=== PATIENT | female | born 1940 | race Caucasian/White ===

== ENCOUNTER 2018-03-20 10:04 | Inpatient (IN) | payer MEDICARE ==
[~2018-03-20] VITALS: Ht 160 cm; Wt 89.6 kg
[~2018-03-20 10:04] MED LIST: AMIT25TA PO; ASPI81TA50 PO; CALC-173 PO; CINN500C2 PO; FERR-46 PO; HYDR-3237 PO; INSU100I28 SQ; INSU100V SQ; LISI-170 PO; MAGN500T PO; METF500T4 PO; METO25TA35 PO; MULT-6 PO; NITR0.4T SL; OMEP-110 PO; PREG100C PO; ROPI2TAB6 PO; SIMV40TA3 PO; SITA100T PO; TICA90TA PO
[2018-03-20] MEDS ORDERED: MELOXICAM PO (10:42)
[2018-03-20] MEDS ORDERED: MAGNESIUM (10:42)
[2018-03-20] MEDS ORDERED: METOPROLOL PO (10:42)
[2018-03-20] MEDS ORDERED: METF500T4 PO ×2 (10:42→16:28)
[2018-03-20] MEDS ORDERED: LISINOPRIL PO (10:42)
[2018-03-20 11:01] LABS: BASOPHILS % (AUTO) 1 % (0-1); EOSINOPHILS # (AUTO) 0.34 x10^3/uL (0-0.4); EOSINOPHILS % (AUTO) 3 % (1-7); LYMPHOCYTES # (AUTO) 3.47 x10^3/uL (1-3.4); LYMPHOCYTES % (AUTO) 26 % (22-44); MD NO; MEAN CORPUSCULAR HEMOGLOBIN 29.3 pg (27.0-34.8); MEAN CORPUSCULAR HGB CONC 33.4 g/dL (32.4-35.8); MEAN CORPUSCULAR VOLUME 87.6 fL (80-100); MEAN PLATELET VOLUME 10.5 fL (7.4-10.4); MONOCYTES # (AUTO) 1.23 x10^3/uL (0.2-0.8); MONOCYTES % (AUTO) 9 % (2-9); NEUTROPHILS # (AUTO) 8.01 x10^3/uL (1.8-6.8); NEUTROPHILS % (AUTO) 61 % (42-75); PLATELET COUNT 288 x10^3/uL (130-400); RED CELL DISTRIBUTION WIDTH 13.6 % (9.6-15.2)
[2018-03-20 11:15] LABS: ALANINE AMINOTRANSFERASE 60 U/L (12-78); ANION GAP 11 mmol/L (5-15); CHLORIDE 107 mmol/L (98-107); CREATININE 1.05 mg/dL (0.55-1.02)
[2018-03-20 11:19] LABS: ALKALINE PHOSPHATASE 161 U/L (45-117); BILIRUBIN,TOTAL 0.6 mg/dL (0.2-1.0); TROPONIN I < 0.015 ng/mL (0.000-0.045)
[2018-03-20] MEDS ORDERED: METOPROLOL TARTRATE 50 MG TABLET PO ONE (12:00)
[2018-03-20] MEDS ORDERED: ENOXAPARIN 40 MG/0.4 ML SQ SCH (13:30)
[2018-03-20] MEDS ORDERED: ONDANSETRON ODT 4 MG PO PRN (13:30)
[2018-03-20] MEDS ORDERED: LABETALOL 5MG/ML, 20ML IVPush PRN (13:30)
[2018-03-20] MEDS ORDERED: POLYETHYLENE GLYCOL 17 GM PACKET PO PRN (13:30)
[2018-03-20] MEDS ORDERED: GUAIFENESIN/DM 200-20MG, 10ML UDC PO PRN (13:30)
[2018-03-20] MEDS ORDERED: ONDANSETRON 2MG/ML, 2ML IVPush PRN (13:30)
[2018-03-20] MEDS ORDERED: HYDROcodone/APAP 5/325 TABLET PO PRN (13:30)
[2018-03-20 14:29] LABS: FREE T4 (FREE THYROXINE) 1.04 ng/dL (0.76-1.46); TROPONIN I < 0.015 ng/mL (0.000-0.045)
[2018-03-20 15:05] VITALS: BP 155/71
[2018-03-20] MEDS ORDERED: METOPROLOL TARTRATE 50 MG TABLET ONE (16:05)
[2018-03-20 16:10] VITALS: BP 247/114
[2018-03-20 16:15] VITALS: BP 185/80
[2018-03-20] MEDS: NITROGLYCERIN 0.4 MG BOTTLE (25 TABS) SL PRN ×2 (16:18→16:28)
[2018-03-20] MEDS: PREGABALIN 100 MG CAPSULE PO SCH ×2 (16:19→20:50)
[2018-03-20 16:32] VITALS: BP 180/80
[2018-03-20] MEDS ORDERED: NITROGLYCERIN OINT 2%, 1GM TP ONE (17:00)
[2018-03-20] MEDS: NITROGLYCERIN OINT 2%, 1GM TP SCH (17:05)
[2018-03-20] MEDS: METOPROLOL TARTRATE 50 MG TABLET PO SCH (17:06)
[2018-03-20 17:12] VITALS: BP 148/70
[2018-03-20] MEDS ORDERED: HEPARIN 5,000 UNITS/ML, 1ML IV ONE (17:30)
[2018-03-20] MEDS ORDERED: morphine SULFATE 10 MG/ML, 1ML IVPush PRN (17:30)
[2018-03-20] MEDS ORDERED: HEPARIN 25,000 UNITS/500ML PMX 500 ML IV PRN (17:30)
[2018-03-20] MEDS ORDERED: HEPARIN 5,000 UNITS/ML, 1ML IV PRN (17:30)
[2018-03-20 18:46] VITALS: BP 147/53
[2018-03-20 19:43] LABS: TROPONIN I 0.016 ng/mL (0.000-0.045)
[2018-03-20 20:01] LABS: MICROSCOPIC INDICATED
[2018-03-20 20:05] LABS: CULTURE INDICATED? YES
[2018-03-20] MEDS: TICAGRELOR 90 MG TABLET PO SCH (20:47)
[2018-03-20] MEDS: SIMVASTATIN 40 MG TABLET PO SCH (20:48)
[2018-03-20] MEDS: ROPINIROLE 1MG TABLET PO SCH (20:48)
[2018-03-20] MEDS: AMITRIPTYLINE 25 MG TABLET PO SCH (20:49)
[2018-03-20] MEDS: INSULIN GLARGINE 100 UNITS/ML, PEN SQ-INSULIN SCH (21:05)
[2018-03-20] MEDS: INSULIN LISPRO 100 UNITS/ML, PEN SQ-INSULIN SCH (21:06)
[2018-03-21] MEDS: NITROGLYCERIN OINT 2%, 1GM TP SCH ×4 (01:00→17:53)
[2018-03-21 01:24] VITALS: BP 151/55
[2018-03-21] MEDS: METOPROLOL TARTRATE 50 MG TABLET PO SCH ×2 (06:01→17:53)
[2018-03-21 07:33] VITALS: BP 132/66
[2018-03-21 07:47] LABS: BASOPHILS # (AUTO) 0.17 x10^3/uL (0-0.1); BASOPHILS % (AUTO) 1 % (0-1); EOSINOPHILS # (AUTO) 0.45 x10^3/uL (0-0.4); EOSINOPHILS % (AUTO) 3 % (1-7); LYMPHOCYTES # (AUTO) 3.87 x10^3/uL (1-3.4); LYMPHOCYTES % (AUTO) 29 % (22-44); MD NO; MEAN CORPUSCULAR HEMOGLOBIN 28.9 pg (27.0-34.8); MEAN CORPUSCULAR HGB CONC 33.4 g/dL (32.4-35.8); MEAN CORPUSCULAR VOLUME 86.7 fL (80-100); MEAN PLATELET VOLUME 10.4 fL (7.4-10.4); MONOCYTES # (AUTO) 1.31 x10^3/uL (0.2-0.8); MONOCYTES % (AUTO) 10 % (2-9); NEUTROPHILS # (AUTO) 7.51 x10^3/uL (1.8-6.8); NEUTROPHILS % (AUTO) 57 % (42-75); PLATELET COUNT 273 x10^3/uL (130-400); RED BLOOD COUNT 4.35 x10^6/uL (3.82-5.3); RED CELL DISTRIBUTION WIDTH 13.4 % (9.6-15.2)
[2018-03-21 07:52] LABS: ALANINE AMINOTRANSFERASE 53 U/L (12-78); ALBUMIN 3.7 g/dL (3.4-5.0); ANION GAP 10 mmol/L (5-15); CALCIUM 8.9 mg/dL (8.5-10.1); CHLORIDE 107 mmol/L (98-107); CREATININE 1.27 mg/dL (0.55-1.02)
[2018-03-21 08:03] LABS: ALKALINE PHOSPHATASE 145 U/L (45-117); BILIRUBIN,TOTAL 0.6 mg/dL (0.2-1.0); TOTAL PROTEIN 7.6 g/dL (6.4-8.2)
[2018-03-21] MEDS: OMEPRAZOLE 20 MG CAPSULE.DR PO SCH (08:07)
[2018-03-21] MEDS: ASPIRIN 81 MG TABLET EC PO SCH (08:07)
[2018-03-21] MEDS: SITAGLIPTIN 50MG TABLET PO SCH (08:08)
[2018-03-21] MEDS: SENNA/DOCUSATE TABLET PO SCH (08:08)
[2018-03-21] MEDS: INSULIN LISPRO 100 UNITS/ML, PEN SQ-INSULIN SCH ×4 (08:08→19:56)
[2018-03-21] MEDS: LISINOPRIL 10 MG TABLET PO SCH (08:08)
[2018-03-21] MEDS: PREGABALIN 100 MG CAPSULE PO SCH ×3 (08:08→19:52)
[2018-03-21] MEDS: TICAGRELOR 90 MG TABLET PO SCH ×2 (08:09→19:52)
[2018-03-21] MEDS: MULTIVITAMIN 1 TABLET PO SCH (08:11)
[2018-03-21] MEDS: ENOXAPARIN 40 MG/0.4 ML SQ SCH (09:24)
[2018-03-21 10:21] LABS: HEMOGLOBIN A1C 8.8 % (4.2-6.3)
[2018-03-21 12:47] VITALS: BP 105/67
[2018-03-21 17:56] VITALS: BP 129/61
[2018-03-21] MEDS: AMITRIPTYLINE 25 MG TABLET PO SCH (19:51)
[2018-03-21] MEDS: SIMVASTATIN 40 MG TABLET PO SCH (19:52)
[2018-03-21] MEDS: ROPINIROLE 1MG TABLET PO SCH (19:52)
[2018-03-21 19:53] VITALS: BP 146/68
[2018-03-21] MEDS: INSULIN GLARGINE 100 UNITS/ML, PEN SQ-INSULIN SCH (19:56)
[2018-03-22] MEDS: NITROGLYCERIN OINT 2%, 1GM TP SCH ×2 (01:23→08:07)
[2018-03-22 01:24] VITALS: BP 116/95
[2018-03-22 05:17] LABS: BASOPHILS # (AUTO) 0.06 x10^3/uL (0-0.1); BASOPHILS % (AUTO) 1 % (0-1); EOSINOPHILS # (AUTO) 0.49 x10^3/uL (0-0.4); EOSINOPHILS % (AUTO) 5 % (1-7); LYMPHOCYTES # (AUTO) 3.15 x10^3/uL (1-3.4); LYMPHOCYTES % (AUTO) 33 % (22-44); MD NO; MEAN CORPUSCULAR HGB CONC 33.1 g/dL (32.4-35.8); MEAN CORPUSCULAR VOLUME 87.8 fL (80-100); MEAN PLATELET VOLUME 10.7 fL (7.4-10.4); MONOCYTES # (AUTO) 1.07 x10^3/uL (0.2-0.8); MONOCYTES % (AUTO) 11 % (2-9); NEUTROPHILS % (AUTO) 50 % (42-75); PLATELET COUNT 245 x10^3/uL (130-400); RED BLOOD COUNT 4.02 x10^6/uL (3.82-5.3); RED CELL DISTRIBUTION WIDTH 13.8 % (9.6-15.2)
[2018-03-22 05:19] LABS: CHLORIDE 107 mmol/L (98-107)
[2018-03-22 05:25] LABS: ALBUMIN 3.5 g/dL (3.4-5.0); ANION GAP 8 mmol/L (5-15); CALCIUM 8.9 mg/dL (8.5-10.1); CREATININE 1.29 mg/dL (0.55-1.02)
[2018-03-22] MEDS: METOPROLOL TARTRATE 50 MG TABLET PO SCH (05:35)
[2018-03-22 06:43] VITALS: BP 163/76
[2018-03-22] MEDS: ENOXAPARIN 40 MG/0.4 ML SQ SCH (08:06)
[2018-03-22] MEDS: TICAGRELOR 90 MG TABLET PO SCH (08:06)
[2018-03-22] MEDS: LISINOPRIL 10 MG TABLET PO SCH (08:06)
[2018-03-22] MEDS: SITAGLIPTIN 50MG TABLET PO SCH (08:06)
[2018-03-22] MEDS: INSULIN LISPRO 100 UNITS/ML, PEN SQ-INSULIN SCH ×3 (08:06→16:01)
[2018-03-22] MEDS: PREGABALIN 100 MG CAPSULE PO SCH ×2 (08:07→15:58)
[2018-03-22] MEDS: ASPIRIN 81 MG TABLET EC PO SCH (08:07)
[2018-03-22] MEDS: MULTIVITAMIN 1 TABLET PO SCH (08:07)
[2018-03-22] MEDS: OMEPRAZOLE 20 MG CAPSULE.DR PO SCH (08:07)
[2018-03-22] MEDS: SENNA/DOCUSATE TABLET PO SCH (08:08)
[2018-03-22] MEDS ORDERED: REGADENOSON 0.4 MG/5 ML SYRINGE ONE (09:39)
[2018-03-22] MEDS ORDERED: ISOSORBIDE MONONITRATE ER 60 MG TABLET PO SCH (10:00)
[2018-03-22 12:16] VITALS: BP 135/67
[2018-03-22] MEDS ORDERED: LISI-167 PO (15:49)
[2018-03-22] MEDS ORDERED: METO50TA82 PO (15:49)
[2018-03-22] MEDS ORDERED: ISOS60TA36 PO (15:49)
== END 2018-03-22 17:02 | disposition home or self-care (01) | DRG 303 ==
LOC: ED 11:16 → EDIP 11:48 → 5SO 13:35
PROVIDERS: ADMIT Hospitalist; ATTEND Hospitalist
DX: I25.110 Atherosclerotic heart disease of native coronary artery with unstable angina pectoris (principal); N17.9 Acute kidney failure, unspecified; E87.2 Acidosis; J96.11 Chronic respiratory failure with hypoxia; G62.9 Polyneuropathy, unspecified; E11.9 Type 2 diabetes mellitus without complications; E78.5 Hyperlipidemia, unspecified; I10 Essential (primary) hypertension; I25.2 Old myocardial infarction; I65.22 Occlusion and stenosis of left carotid artery; J44.9 Chronic obstructive pulmonary disease, unspecified; K21.9 Gastro-esophageal reflux disease without esophagitis; K22.70 Barrett's esophagus without dysplasia; Z95.5 Presence of coronary angioplasty implant and graft; Z79.4 Long term (current) use of insulin; Z79.82 Long term (current) use of aspirin; Z79.899 Other long term (current) drug therapy; Z80.0 Family history of malignant neoplasm of digestive organs; Z82.5 Family history of asthma and other chronic lower respiratory diseases; Z87.891 Personal history of nicotine dependence; Z90.710 Acquired absence of both cervix and uterus; Z99.81 Dependence on supplemental oxygen
CPT/HCPCS: 36415; 71045; 78452; 80048; 80053; 81001; 82040; 82962; 83036; 83605; 83735; 84100; 84439; 84443; 84484; 85025; 85520; 87086; 93005; 93017; 99285; J1644; J1650; J2785; A9502; C9898; J1815

== ENCOUNTER 2018-03-30 17:09 | Inpatient (IN) | payer MEDICARE ==
[~2018-03-30] VITALS: Ht 160 cm; Wt 89.7 kg
[~2018-03-30 17:09] MED LIST changes: +ISOS60TA36 PO; +LISI-167 PO; +LISINOPRIL PO; +MAGNESIUM; +MELOXICAM PO; -METF500T4 PO; +METF500T5 PO; +METO50TA82 PO; +METOPROLOL PO
[2018-03-30] MEDS ORDERED: NITROGLYCERIN OINT 2%, 1GM TP ONE (17:30)
[2018-03-30] MEDS ORDERED: NITROGLYCERIN SINGLE TAB 0.4 MG SL PRN (17:30)
[2018-03-30 17:50] LABS: TROPONIN I < 0.015 ng/mL (0.000-0.045)
[2018-03-30] MEDS ORDERED: METO25TA35 PO (17:56)
[2018-03-30] MEDS ORDERED: LISI-170 PO (17:56)
[2018-03-30] MEDS ORDERED: MELO15TA24 PO (17:56)
[2018-03-30] MEDS ORDERED: ONDANSETRON ODT 4 MG PO PRN (20:00)
[2018-03-30] MEDS ORDERED: LABETALOL 5MG/ML, 20ML IVPush PRN (20:00)
[2018-03-30] MEDS ORDERED: DOCUSATE 100 MG CAPSULE PO PRN (20:00)
[2018-03-30] MEDS ORDERED: BISACODYL 10 MG SUPP PR PRN (20:00)
[2018-03-30] MEDS ORDERED: morphine SULFATE 10 MG/ML, 1ML IVPush PRN (20:00)
[2018-03-30] MEDS ORDERED: hydrALAzine 20 MG/ML, 1ML IVPush PRN (20:00)
[2018-03-30] MEDS ORDERED: POLYETHYLENE GLYCOL 17 GM PACKET PO PRN (20:00)
[2018-03-30 20:11] VITALS: BP 135/72
[2018-03-30] MEDS ORDERED: DEXTROSE 4 GM TAB.CHEW PO PRN (20:30)
[2018-03-30] MEDS ORDERED: GLUCAGON 1 MG IM PRN (20:30)
[2018-03-30] MEDS ORDERED: DEXTROSE 50%, 50ML SYRINGE IVPush PRN (20:30)
[2018-03-30 20:35] LABS: TROPONIN I 0.018 ng/mL (0.000-0.045)
[2018-03-30] MEDS: NITROGLYCERIN 0.4 MG BOTTLE (25 TABS) SL PRN ×2 (20:52→22:21)
[2018-03-30 20:57] VITALS: BP 130/69
[2018-03-30] MEDS: SODIUM CHLORIDE 0.9% 1,000 ML IV SCH (21:49)
[2018-03-30] MEDS: PREGABALIN 100 MG CAPSULE PO SCH (21:50)
[2018-03-30] MEDS: HEPARIN 5,000 UNITS/ML, 1ML SQ SCH (21:50)
[2018-03-30] MEDS: TICAGRELOR 90 MG TABLET PO SCH (21:50)
[2018-03-30] MEDS: SODIUM CHLORIDE FLUSH 10ML SYR IVF SCH (21:50)
[2018-03-30] MEDS: AMITRIPTYLINE 25 MG TABLET PO SCH (21:50)
[2018-03-30] MEDS: SIMVASTATIN 40 MG TABLET PO SCH (21:50)
[2018-03-30] MEDS: INSULIN LISPRO 100 UNITS/ML, PEN SQ-INSULIN SCH (22:02)
[2018-03-30] MEDS: INSULIN GLARGINE 100 UNITS/ML, PEN SQ-INSULIN SCH (22:03)
[2018-03-30 22:19] VITALS: BP 159/98
[2018-03-30 22:33] VITALS: BP 134/74
[2018-03-31] VITALS (13 sets, daily range): BP systolic 125–221; BP diastolic 53–90
[2018-03-31] MEDS: NITROGLYCERIN 0.4 MG BOTTLE (25 TABS) SL PRN ×5 (00:05→22:27)
[2018-03-31] MEDS: ACETAMINOPHEN 325 MG TABLET PO PRN ×2 (00:09→22:21)
[2018-03-31 02:17] LABS: BASOPHILS % (AUTO) 1 % (0-1); EOSINOPHILS # (AUTO) 0.29 x10^3/uL (0-0.4); EOSINOPHILS % (AUTO) 3 % (1-7); LYMPHOCYTES # (AUTO) 3.06 x10^3/uL (1-3.4); LYMPHOCYTES % (AUTO) 28 % (22-44); MD NO; MEAN CORPUSCULAR HEMOGLOBIN 28.9 pg (27.0-34.8); MEAN CORPUSCULAR HGB CONC 33.1 g/dL (32.4-35.8); MEAN CORPUSCULAR VOLUME 87.5 fL (80-100); MEAN PLATELET VOLUME 10.8 fL (7.4-10.4); MONOCYTES # (AUTO) 1.14 x10^3/uL (0.2-0.8); MONOCYTES % (AUTO) 10 % (2-9); NEUTROPHILS # (AUTO) 6.43 x10^3/uL (1.8-6.8); NEUTROPHILS % (AUTO) 58 % (42-75); PLATELET COUNT 243 x10^3/uL (130-400); RED CELL DISTRIBUTION WIDTH 13.9 % (9.6-15.2)
[2018-03-31 02:26] LABS: ANION GAP 9 mmol/L (5-15); CALCIUM 9.2 mg/dL (8.5-10.1); CHLORIDE 107 mmol/L (98-107); CREATININE 1.17 mg/dL (0.55-1.02)
[2018-03-31 02:30] LABS: TROPONIN I 0.048 ng/mL (0.000-0.045)
[2018-03-31] MEDS: SODIUM CHLORIDE 0.9% 1,000 ML IV SCH ×4 (05:59→23:51)
[2018-03-31] MEDS: ASPIRIN 325 MG TABLET PO SCH (06:00)
[2018-03-31] MEDS: HEPARIN 5,000 UNITS/ML, 1ML SQ SCH ×3 (06:00→20:00)
[2018-03-31] MEDS: METOPROLOL TARTRATE 25 MG TABLET PO SCH (08:04)
[2018-03-31] MEDS: INSULIN LISPRO 100 UNITS/ML, PEN SQ-INSULIN SCH ×4 (08:04→21:26)
[2018-03-31] MEDS: TICAGRELOR 90 MG TABLET PO SCH ×2 (08:04→21:24)
[2018-03-31] MEDS: SODIUM CHLORIDE FLUSH 10ML SYR IVF SCH ×2 (08:06→21:24)
[2018-03-31] MEDS: OMEPRAZOLE 20 MG CAPSULE.DR PO SCH (08:18)
[2018-03-31] MEDS: LISINOPRIL 20 MG TABLET PO SCH (08:19)
[2018-03-31] MEDS: PREGABALIN 100 MG CAPSULE PO SCH ×3 (08:19→21:24)
[2018-03-31] MEDS: ISOSORBIDE MONONITRATE ER 60 MG TABLET PO SCH (08:22)
[2018-03-31] MEDS ORDERED: SODIUM CHLORIDE 0.9% 1,000 ML IV ONE (11:13)
[2018-03-31] MEDS ORDERED: MIDAZOLAM 1 MG/ML, 5ML ONE (14:18)
[2018-03-31] MEDS ORDERED: FENTANYL PF 100 MCG/2ML ONE (14:19)
[2018-03-31] MEDS ORDERED: VERAPAMIL 2.5 MG/ML, 2ML ONE (14:19)
[2018-03-31] MEDS ORDERED: HEPARIN 1,000 UNITS/ML, 10ML ONE (14:19)
[2018-03-31] MEDS ORDERED: BIVALIRUDIN 250 MG ONE (14:19)
[2018-03-31] MEDS ORDERED: TICAGRELOR 90 MG TABLET ONE (14:20)
[2018-03-31] MEDS ORDERED: LIDOCAINE 2%, 2ML ONE (14:20)
[2018-03-31] MEDS ORDERED: LABETALOL 5MG/ML, 20ML ONE (15:02)
[2018-03-31] MEDS: MAGNESIUM OXIDE 400 MG TABLET PO SCH (16:21)
[2018-03-31] MEDS: MULTIVITAMIN 1 TABLET PO SCH (16:21)
[2018-03-31] MEDS: FERROUS SULFATE 325 MG TABLET PO SCH (16:21)
[2018-03-31] MEDS: CALCIUM/VITAMIN D3 250-125 TABLET PO SCH (16:24)
[2018-03-31] MEDS: SIMVASTATIN 40 MG TABLET PO SCH (21:24)
[2018-03-31] MEDS: AMITRIPTYLINE 25 MG TABLET PO SCH (21:24)
[2018-03-31] MEDS: INSULIN GLARGINE 100 UNITS/ML, PEN SQ-INSULIN SCH (21:25)
[2018-04-01] VITALS (7 sets, daily range): BP systolic 104–203; BP diastolic 60–100
[2018-04-01] MEDS: HEPARIN 5,000 UNITS/ML, 1ML SQ SCH ×2 (05:23→13:18)
[2018-04-01] MEDS: ASPIRIN 325 MG TABLET PO SCH (05:23)
[2018-04-01 05:39] LABS: ALBUMIN 3.6 g/dL (3.4-5.0); ANION GAP 8 mmol/L (5-15); CALCIUM 9.4 mg/dL (8.5-10.1); CHLORIDE 108 mmol/L (98-107); CREATININE 1.14 mg/dL (0.55-1.02)
[2018-04-01 05:40] LABS: BASOPHILS # (AUTO) 0.07 x10^3/uL (0-0.1); BASOPHILS % (AUTO) 1 % (0-1); EOSINOPHILS # (AUTO) 0.39 x10^3/uL (0-0.4); EOSINOPHILS % (AUTO) 3 % (1-7); LYMPHOCYTES # (AUTO) 2.95 x10^3/uL (1-3.4); LYMPHOCYTES % (AUTO) 22 % (22-44); MD NO; MEAN CORPUSCULAR HGB CONC 33.1 g/dL (32.4-35.8); MEAN CORPUSCULAR VOLUME 87.6 fL (80-100); MEAN PLATELET VOLUME 11.3 fL (7.4-10.4); MONOCYTES # (AUTO) 1.22 x10^3/uL (0.2-0.8); MONOCYTES % (AUTO) 9 % (2-9); NEUTROPHILS # (AUTO) 8.64 x10^3/uL (1.8-6.8); NEUTROPHILS % (AUTO) 65 % (42-75); PLATELET COUNT 251 x10^3/uL (130-400); RED BLOOD COUNT 4.05 x10^6/uL (3.82-5.3); RED CELL DISTRIBUTION WIDTH 13.8 % (9.6-15.2)
[2018-04-01] MEDS: SODIUM CHLORIDE 0.9% 1,000 ML IV SCH ×3 (07:51→23:51)
[2018-04-01] MEDS: INSULIN LISPRO 100 UNITS/ML, PEN SQ-INSULIN SCH ×4 (08:56→21:47)
[2018-04-01] MEDS: MULTIVITAMIN 1 TABLET PO SCH (08:57)
[2018-04-01] MEDS: OMEPRAZOLE 20 MG CAPSULE.DR PO SCH (08:57)
[2018-04-01] MEDS: FERROUS SULFATE 325 MG TABLET PO SCH (08:58)
[2018-04-01] MEDS: LISINOPRIL 20 MG TABLET PO SCH (08:58)
[2018-04-01] MEDS: PREGABALIN 100 MG CAPSULE PO SCH ×3 (08:58→21:40)
[2018-04-01] MEDS: CALCIUM/VITAMIN D3 250-125 TABLET PO SCH (08:58)
[2018-04-01] MEDS: TICAGRELOR 90 MG TABLET PO SCH ×2 (08:58→21:40)
[2018-04-01] MEDS: ISOSORBIDE MONONITRATE ER 60 MG TABLET PO SCH (08:58)
[2018-04-01] MEDS: METOPROLOL TARTRATE 25 MG TABLET PO SCH (08:58)
[2018-04-01] MEDS: MAGNESIUM OXIDE 400 MG TABLET PO SCH (09:02)
[2018-04-01] MEDS: SODIUM CHLORIDE FLUSH 10ML SYR IVF SCH ×2 (09:05→21:41)
[2018-04-01] MEDS: NITROGLYCERIN 0.4 MG BOTTLE (25 TABS) SL PRN ×2 (09:15→09:22)
[2018-04-01] MEDS: ACETAMINOPHEN 325 MG TABLET PO PRN (09:20)
[2018-04-01] MEDS: AMITRIPTYLINE 25 MG TABLET PO SCH (21:40)
[2018-04-01] MEDS: SIMVASTATIN 40 MG TABLET PO SCH (21:40)
[2018-04-01] MEDS: INSULIN GLARGINE 100 UNITS/ML, PEN SQ-INSULIN SCH (21:55)
[2018-04-02] VITALS (8 sets, daily range): BP systolic 118–214; BP diastolic 54–99
[2018-04-02 05:46] LABS: CHLORIDE 108 mmol/L (98-107)
[2018-04-02 05:50] LABS: ANION GAP 9 mmol/L (5-15); CALCIUM 9.6 mg/dL (8.5-10.1); CREATININE 1.36 mg/dL (0.55-1.02)
[2018-04-02] MEDS ORDERED: ASPIRIN 81 MG TABLET EC PO SCH (06:00)
[2018-04-02] MEDS ORDERED: SODIUM CHLORIDE 0.9% 1,000 ML IV SCH (08:00)
[2018-04-02] MEDS: INSULIN LISPRO 100 UNITS/ML, PEN SQ-INSULIN SCH ×2 (08:16→12:02)
[2018-04-02] MEDS: MAGNESIUM OXIDE 400 MG TABLET PO SCH ×2 (09:00→09:49)
[2018-04-02] MEDS: SODIUM CHLORIDE FLUSH 10ML SYR IVF SCH (09:00)
[2018-04-02] MEDS: METOPROLOL TARTRATE 25 MG TABLET PO SCH (09:54)
[2018-04-02] MEDS: OMEPRAZOLE 20 MG CAPSULE.DR PO SCH (09:54)
[2018-04-02] MEDS: PREGABALIN 100 MG CAPSULE PO SCH ×2 (09:54→15:11)
[2018-04-02] MEDS: CALCIUM/VITAMIN D3 250-125 TABLET PO SCH (09:55)
[2018-04-02] MEDS: LISINOPRIL 20 MG TABLET PO SCH (09:55)
[2018-04-02] MEDS: FERROUS SULFATE 325 MG TABLET PO SCH (09:55)
[2018-04-02] MEDS: MULTIVITAMIN 1 TABLET PO SCH (09:55)
[2018-04-02] MEDS: TICAGRELOR 90 MG TABLET PO SCH (09:55)
[2018-04-02] MEDS ORDERED: ISOSORBIDE MONONITRATE ER 30 MG TABLET ONE (09:56)
[2018-04-02] MEDS: ISOSORBIDE MONONITRATE ER 60 MG TABLET PO SCH (09:57)
[2018-04-02] MEDS: MAALOX/HYOSCYAMINE/LIDOCAINE 45 ML BTL PO PRN ×2 (09:58→10:42)
[2018-04-02] MEDS ORDERED: SODIUM CHLORIDE 0.9%, 500ML IVBOLUS ONE (10:00)
[2018-04-02] MEDS: NITROGLYCERIN 0.4 MG BOTTLE (25 TABS) SL PRN ×2 (10:14→10:22)
[2018-04-02 12:42] LABS: ANION GAP 8 mmol/L (5-15); CALCIUM 8.8 mg/dL (8.5-10.1); CHLORIDE 106 mmol/L (98-107)
[2018-04-02 12:44] LABS: CREATININE 1.28 mg/dL (0.55-1.02)
== END 2018-04-02 16:15 | disposition home or self-care (01) | DRG 250 ==
LOC: ED 17:54 → EDIP 18:52 → 5SO 20:28 → DCLOUNGE 04-02 15:40
PROVIDERS: ADMIT Hospitalist; ATTEND Hospitalist
PROC: 02703ZZ Dilation of Coronary Artery, One Artery, Percutaneous Approach (ICD-10-PCS; principal; 2018-03-31)
PROC: B2111ZZ Fluoroscopy of Multiple Coronary Arteries using Low Osmolar Contrast (ICD-10-PCS; 2018-03-31)
PROC: 4A023N7 Measurement of Cardiac Sampling and Pressure, Left Heart, Percutaneous Approach (ICD-10-PCS; 2018-03-31)
DX: T82.855A Stenosis of coronary artery stent, initial encounter (principal); N17.0 Acute kidney failure with tubular necrosis; J96.11 Chronic respiratory failure with hypoxia; I10 Essential (primary) hypertension; E78.5 Hyperlipidemia, unspecified; J44.9 Chronic obstructive pulmonary disease, unspecified; K22.70 Barrett's esophagus without dysplasia; I25.10 Atherosclerotic heart disease of native coronary artery without angina pectoris; I65.29 Occlusion and stenosis of unspecified carotid artery; N14.1 Nephropathy induced by other drugs, medicaments and biological substances; E11.65 Type 2 diabetes mellitus with hyperglycemia; Y83.8 Other surgical procedures as the cause of abnormal reaction of the patient, or of later complication, without mention of misadventure at the time of the procedure; T50.8X5A Adverse effect of diagnostic agents, initial encounter; K21.9 Gastro-esophageal reflux disease without esophagitis; Z87.891 Personal history of nicotine dependence; Y92.89 Other specified places as the place of occurrence of the external cause; I25.2 Old myocardial infarction; Z80.0 Family history of malignant neoplasm of digestive organs; Z82.5 Family history of asthma and other chronic lower respiratory diseases; Z90.710 Acquired absence of both cervix and uterus; Z95.5 Presence of coronary angioplasty implant and graft; Z99.81 Dependence on supplemental oxygen
CPT/HCPCS: 36415; 80048; 82040; 82962; 83735; 84484; 85025; 92920; 93005; 93458; 99156; 99157; 99285; C1769; C1894; J0583; J1644; J2250; J3010; J3490; 92928; C1725; C1887; J7030; J7040; Q9967

== ENCOUNTER 2018-04-05 10:54 | Inpatient (IN) | payer MEDICARE ==
[~2018-04-05] VITALS: Ht 160 cm; Wt 88.3 kg
[~2018-04-05 10:54] MED LIST changes: +MELO15TA24 PO
[2018-04-05] MEDS ORDERED: SODIUM CHLORIDE FLUSH 10ML SYR IVF ONE (11:30)
[2018-04-05 14:00] LABS: BASOPHILS % (AUTO) 1 % (0-1); EOSINOPHILS # (AUTO) 0.74 x10^3/uL (0-0.4); EOSINOPHILS % (AUTO) 6 % (1-7); LYMPHOCYTES # (AUTO) 3.79 x10^3/uL (1-3.4); LYMPHOCYTES % (AUTO) 29 % (22-44); MD NO; MEAN CORPUSCULAR HEMOGLOBIN 28.8 pg (27.0-34.8); MEAN CORPUSCULAR VOLUME 87.2 fL (80-100); MEAN PLATELET VOLUME 10.8 fL (7.4-10.4); MONOCYTES # (AUTO) 1.23 x10^3/uL (0.2-0.8); MONOCYTES % (AUTO) 9 % (2-9); NEUTROPHILS # (AUTO) 7.37 x10^3/uL (1.8-6.8); NEUTROPHILS % (AUTO) 56 % (42-75); PLATELET COUNT 282 x10^3/uL (130-400); RED CELL DISTRIBUTION WIDTH 14.2 % (9.6-15.2)
[2018-04-05] MEDS ORDERED: NITROGLYCERIN 0.4 MG BOTTLE (25 TABS) SL PRN (14:00)
[2018-04-05] MEDS ORDERED: ONDANSETRON ODT 4 MG PO PRN (14:00)
[2018-04-05] MEDS: INSULIN LISPRO 100 UNITS/ML, PEN SQ-INSULIN SCH ×2 (14:00→16:18)
[2018-04-05] MEDS ORDERED: hydrALAzine 20 MG/ML, 1ML IVPush PRN (14:00)
[2018-04-05] MEDS ORDERED: PROMETHAZINE 25 MG/ML, 1ML IM PRN (14:00)
[2018-04-05] MEDS ORDERED: morphine SULFATE 10 MG/ML, 1ML IVPush PRN (14:00)
[2018-04-05] MEDS ORDERED: ENOXAPARIN 40 MG/0.4 ML SQ SCH (14:00)
[2018-04-05] MEDS ORDERED: ACETAMINOPHEN 325 MG TABLET PO PRN (14:00)
[2018-04-05 14:08] LABS: INTERNATIONAL NORMALIZED RATIO 1.04 (0.93-1.1); PROTHROMBIN TIME 10.7 Seconds (9.6-11.5)
[2018-04-05 14:13] LABS: ANION GAP 8 mmol/L (5-15); CALCIUM 9.3 mg/dL (8.5-10.1); CHLORIDE 105 mmol/L (98-107); CREATININE 1.46 mg/dL (0.55-1.02)
[2018-04-05] MEDS ORDERED: ENOXAPARIN 30 MG/0.3 ML SQ SCH (15:30)
[2018-04-05 15:36] VITALS: BP 117/67
[2018-04-05] MEDS: PREGABALIN 100 MG CAPSULE PO SCH ×2 (16:18→20:40)
[2018-04-05 19:51] LABS: TROPONIN I 0.979 ng/mL (0.000-0.045)
[2018-04-05 19:54] VITALS: BP 100/59
[2018-04-05] MEDS: TICAGRELOR 90 MG TABLET PO SCH (20:40)
[2018-04-05] MEDS: AMITRIPTYLINE 25 MG TABLET PO SCH (20:40)
[2018-04-05] MEDS: ROPINIROLE 1MG TABLET PO SCH (20:40)
[2018-04-05] MEDS: INSULIN GLARGINE 100 UNITS/ML, PEN SQ-INSULIN SCH (20:46)
[2018-04-05] MEDS ORDERED: SIMVASTATIN 40 MG TABLET PO SCH (21:00)
[2018-04-06] VITALS (7 sets, daily range): BP systolic 108–168; BP diastolic 63–86
[2018-04-06 02:00] LABS: ANION GAP 8 mmol/L (5-15); CALCIUM 9.1 mg/dL (8.5-10.1); CHLORIDE 108 mmol/L (98-107); CREATININE 1.26 mg/dL (0.55-1.02)
[2018-04-06 02:05] LABS: TROPONIN I 0.679 ng/mL (0.000-0.045)
[2018-04-06] MEDS: INSULIN LISPRO 100 UNITS/ML, PEN SQ-INSULIN SCH ×3 (07:30→16:34)
[2018-04-06] MEDS ORDERED: SODIUM CHLORIDE 0.9% 1,000 ML IV ONE (08:34)
[2018-04-06] MEDS: MELOXICAM 15 MG TABLET PO SCH (08:38)
[2018-04-06] MEDS: LISINOPRIL 20 MG TABLET PO SCH (08:38)
[2018-04-06] MEDS: OMEPRAZOLE 20 MG CAPSULE.DR PO SCH (08:38)
[2018-04-06] MEDS: ASPIRIN 81 MG TABLET EC PO SCH (08:38)
[2018-04-06] MEDS: FERROUS SULFATE 325 MG TABLET PO SCH (08:38)
[2018-04-06] MEDS: SITAGLIPTIN 50MG TABLET PO SCH (08:38)
[2018-04-06] MEDS: TICAGRELOR 90 MG TABLET PO SCH ×2 (08:39→20:39)
[2018-04-06] MEDS: CALCIUM/VITAMIN D3 250-125 TABLET PO SCH (08:39)
[2018-04-06] MEDS: ISOSORBIDE MONONITRATE ER 60 MG TABLET PO SCH (08:39)
[2018-04-06] MEDS: MULTIVITAMIN 1 TABLET PO SCH (08:39)
[2018-04-06] MEDS: PREGABALIN 100 MG CAPSULE PO SCH ×3 (08:39→20:39)
[2018-04-06] MEDS: MAGNESIUM OXIDE 400 MG TABLET PO SCH (08:39)
[2018-04-06] MEDS: METOPROLOL SUCCINATE 25 MG TAB.ER.24H PO SCH (08:42)
[2018-04-06] MEDS ORDERED: METOPROLOL TARTRATE 25 MG TABLET PO SCH (09:00)
[2018-04-06] MEDS ORDERED: FENTANYL PF 100 MCG/2ML ONE (11:56)
[2018-04-06] MEDS ORDERED: VERAPAMIL 2.5 MG/ML, 2ML ONE (11:56)
[2018-04-06] MEDS ORDERED: MIDAZOLAM 1 MG/ML, 5ML ONE (11:56)
[2018-04-06] MEDS ORDERED: BIVALIRUDIN 250 MG ONE (11:57)
[2018-04-06] MEDS ORDERED: NITROGLYCERIN 5 MG/ML, 10ML ONE (11:57)
[2018-04-06] MEDS ORDERED: LIDOCAINE/PF 1%, 30ML ONE (11:57)
[2018-04-06] MEDS ORDERED: HEPARIN 1,000 UNITS/ML, 10ML ONE (11:57)
[2018-04-06] MEDS ORDERED: LIDOCAINE 2%, 2ML ONE (12:23)
[2018-04-06] MEDS ORDERED: ENOXAPARIN 40 MG/0.4 ML SQ SCH (15:00)
[2018-04-06] MEDS: AMITRIPTYLINE 25 MG TABLET PO SCH (20:38)
[2018-04-06] MEDS: ROPINIROLE 1MG TABLET PO SCH (20:39)
[2018-04-06] MEDS ORDERED: ATORVASTATIN 80 MG TABLET PO SCH (21:00)
[2018-04-06] MEDS: INSULIN GLARGINE 100 UNITS/ML, PEN SQ-INSULIN SCH (22:27)
[2018-04-07 01:33] VITALS: BP 96/55
[2018-04-07 05:35] LABS: BASOPHILS # (AUTO) 0.04 x10^3/uL (0-0.1); BASOPHILS % (AUTO) 0 % (0-1); EOSINOPHILS # (AUTO) 0.47 x10^3/uL (0-0.4); EOSINOPHILS % (AUTO) 4 % (1-7); LYMPHOCYTES # (AUTO) 3.48 x10^3/uL (1-3.4); LYMPHOCYTES % (AUTO) 32 % (22-44); MD NO; MEAN CORPUSCULAR HEMOGLOBIN 29.1 pg (27.0-34.8); MEAN CORPUSCULAR HGB CONC 32.8 g/dL (32.4-35.8); MEAN CORPUSCULAR VOLUME 88.8 fL (80-100); MEAN PLATELET VOLUME 11.4 fL (7.4-10.4); MONOCYTES # (AUTO) 1.26 x10^3/uL (0.2-0.8); MONOCYTES % (AUTO) 11 % (2-9); NEUTROPHILS # (AUTO) 5.81 x10^3/uL (1.8-6.8); NEUTROPHILS % (AUTO) 53 % (42-75); PLATELET COUNT 248 x10^3/uL (130-400); RED BLOOD COUNT 3.82 x10^6/uL (3.82-5.3); RED CELL DISTRIBUTION WIDTH 14.4 % (9.6-15.2)
[2018-04-07 05:42] LABS: ALBUMIN 3.2 g/dL (3.4-5.0); ANION GAP 7 mmol/L (5-15); CALCIUM 9.2 mg/dL (8.5-10.1); CHLORIDE 107 mmol/L (98-107)
[2018-04-07 05:43] LABS: CREATININE 1.64 mg/dL (0.55-1.02)
[2018-04-07 05:45] VITALS: BP 118/60
[2018-04-07] MEDS: METOPROLOL SUCCINATE 25 MG TAB.ER.24H PO SCH (05:46)
[2018-04-07 08:00] VITALS: BP 126/78
[2018-04-07] MEDS: INSULIN LISPRO 100 UNITS/ML, PEN SQ-INSULIN SCH (09:20)
[2018-04-07] MEDS: PREGABALIN 100 MG CAPSULE PO SCH (09:22)
[2018-04-07] MEDS: ISOSORBIDE MONONITRATE ER 60 MG TABLET PO SCH (09:24)
[2018-04-07] MEDS: MAGNESIUM OXIDE 400 MG TABLET PO SCH (09:26)
[2018-04-07] MEDS: SITAGLIPTIN 50MG TABLET PO SCH (09:26)
[2018-04-07] MEDS: FERROUS SULFATE 325 MG TABLET PO SCH (09:27)
[2018-04-07] MEDS: MELOXICAM 15 MG TABLET PO SCH (09:29)
[2018-04-07] MEDS: OMEPRAZOLE 20 MG CAPSULE.DR PO SCH (09:29)
[2018-04-07] MEDS: ASPIRIN 81 MG TABLET EC PO SCH (09:30)
[2018-04-07] MEDS: LISINOPRIL 20 MG TABLET PO SCH (09:31)
[2018-04-07] MEDS: CALCIUM/VITAMIN D3 250-125 TABLET PO SCH (09:32)
[2018-04-07] MEDS: MULTIVITAMIN 1 TABLET PO SCH (09:33)
[2018-04-07] MEDS: TICAGRELOR 90 MG TABLET PO SCH (09:34)
[2018-04-07] MEDS ORDERED: ENOXAPARIN 30 MG/0.3 ML SQ SCH (15:00)
== END 2018-04-07 11:43 | disposition home or self-care (01) | DRG 246 ==
LOC: ED 11:37 → EDIP 12:02 → 5SO 14:46 → DCLOUNGE 04-07 11:30
PROVIDERS: ADMIT Internal Medicine; ATTEND Hospitalist
PROC: 027034Z Dilation of Coronary Artery, One Artery with Drug-eluting Intraluminal Device, Percutaneous Approach (ICD-10-PCS; principal; 2018-04-06)
PROC: 4A023N7 Measurement of Cardiac Sampling and Pressure, Left Heart, Percutaneous Approach (ICD-10-PCS; 2018-04-06)
PROC: B2111ZZ Fluoroscopy of Multiple Coronary Arteries using Low Osmolar Contrast (ICD-10-PCS; 2018-04-06)
PROC: B2151ZZ Fluoroscopy of Left Heart using Low Osmolar Contrast (ICD-10-PCS; 2018-04-06)
DX: I21.4 Non-ST elevation (NSTEMI) myocardial infarction (principal); N17.0 Acute kidney failure with tubular necrosis; J96.11 Chronic respiratory failure with hypoxia; I25.110 Atherosclerotic heart disease of native coronary artery with unstable angina pectoris; E11.51 Type 2 diabetes mellitus with diabetic peripheral angiopathy without gangrene; I65.22 Occlusion and stenosis of left carotid artery; J44.9 Chronic obstructive pulmonary disease, unspecified; N28.9 Disorder of kidney and ureter, unspecified; E11.22 Type 2 diabetes mellitus with diabetic chronic kidney disease; E78.5 Hyperlipidemia, unspecified; E66.9 Obesity, unspecified; I12.9 Hypertensive chronic kidney disease with stage 1 through stage 4 chronic kidney disease, or unspecified chronic kidney disease; K21.9 Gastro-esophageal reflux disease without esophagitis; K22.70 Barrett's esophagus without dysplasia; N18.2 Chronic kidney disease, stage 2 (mild); Z79.4 Long term (current) use of insulin; Z80.0 Family history of malignant neoplasm of digestive organs; I25.2 Old myocardial infarction; Z87.891 Personal history of nicotine dependence; Z82.5 Family history of asthma and other chronic lower respiratory diseases; Z90.49 Acquired absence of other specified parts of digestive tract; Z90.710 Acquired absence of both cervix and uterus; Z99.81 Dependence on supplemental oxygen; Z79.82 Long term (current) use of aspirin; Z79.899 Other long term (current) drug therapy; Z88.8 Allergy status to other drugs, medicaments and biological substances
CPT/HCPCS: 36415; 80048; 82040; 82962; 83690; 83735; 84100; 84443; 84484; 85025; 85610; 93005; 93458; 99156; 99157; 99285; C1769; C1894; C9600; J0583; J1644; J1650; J2250; J3010; J3490; C1725; C1874; C1887; J1815; J2270; Q9967

== ENCOUNTER 2018-05-22 14:01 | Inpatient (IN) | payer MEDICARE ==
[2018-05-22] VITALS (11 sets, daily range): BP systolic 144–253; BP diastolic 65–113
[~2018-05-22] VITALS: Ht 152.4 cm; Wt 90.5 kg
[2018-05-22] MEDS ORDERED: SODIUM CHLORIDE FLUSH 10ML SYR IVF ONE (14:30)
[2018-05-22 14:43] LABS: BASOPHILS % (AUTO) 1 % (0-1); EOSINOPHILS # (AUTO) 0.35 x10^3/uL (0-0.4); EOSINOPHILS % (AUTO) 3 % (1-7); LYMPHOCYTES # (AUTO) 2.55 x10^3/uL (1-3.4); LYMPHOCYTES % (AUTO) 19 % (22-44); MD NO; MEAN CORPUSCULAR HEMOGLOBIN 29.7 pg (27.0-34.8); MEAN CORPUSCULAR HGB CONC 33.5 g/dL (32.4-35.8); MEAN CORPUSCULAR VOLUME 88.5 fL (80-100); MEAN PLATELET VOLUME 10.4 fL (7.4-10.4); MONOCYTES # (AUTO) 1.08 x10^3/uL (0.2-0.8); MONOCYTES % (AUTO) 8 % (2-9); NEUTROPHILS % (AUTO) 69 % (42-75); PLATELET COUNT 268 x10^3/uL (130-400); RED BLOOD COUNT 4.22 x10^6/uL (3.82-5.3); RED CELL DISTRIBUTION WIDTH 13.3 % (9.6-15.2)
[2018-05-22 14:47] LABS: ALANINE AMINOTRANSFERASE 35 U/L (12-78); ALBUMIN 3.7 g/dL (3.4-5.0); ANION GAP 9 mmol/L (5-15); CHLORIDE 110 mmol/L (98-107); CREATININE 1.43 mg/dL (0.55-1.02)
[2018-05-22 14:51] LABS: ALKALINE PHOSPHATASE 132 U/L (45-117); BILIRUBIN,TOTAL 0.5 mg/dL (0.2-1.0); TOTAL PROTEIN 7.6 g/dL (6.4-8.2); TROPONIN I < 0.015 ng/mL (0.000-0.045)
[2018-05-22] MEDS: INSULIN LISPRO 100 UNITS/ML, PEN SQ-INSULIN SCH ×2 (17:00→22:14)
[2018-05-22] MEDS ORDERED: MORPHINE SULFATE 4 MG/ML, 1ML IVPush PRN (17:00)
[2018-05-22] MEDS ORDERED: HYDROcodone/APAP 5/325 TABLET PO PRN (17:00)
[2018-05-22] MEDS ORDERED: ONDANSETRON 2MG/ML, 2ML IVPush PRN (17:00)
[2018-05-22] MEDS: NITROGLYCERIN 0.4 MG BOTTLE (25 TABS) SL PRN ×5 (18:00→21:16)
[2018-05-22] MEDS ORDERED: ENOXAPARIN 40 MG/0.4 ML SQ SCH (18:00)
[2018-05-22 20:41] LABS: TROPONIN I 0.018 ng/mL (0.000-0.045)
[2018-05-22] MEDS ORDERED: LABETALOL 5MG/ML, 20ML IVPush PRN (22:00)
[2018-05-22] MEDS ORDERED: ISOSORBIDE MONONITRATE ER 60 MG TABLET PO ONE (22:00)
[2018-05-22] MEDS: ROPINIROLE 1MG TABLET PO SCH (22:04)
[2018-05-22] MEDS: SIMVASTATIN 40 MG TABLET PO SCH (22:05)
[2018-05-22] MEDS: PREGABALIN 100 MG CAPSULE PO SCH (22:09)
[2018-05-22] MEDS: AMITRIPTYLINE 25 MG TABLET PO SCH (22:09)
[2018-05-22] MEDS: TICAGRELOR 90 MG TABLET PO SCH (22:09)
[2018-05-22] MEDS: ENOXAPARIN 30 MG/0.3 ML SQ SCH (22:13)
[2018-05-22] MEDS: INSULIN GLARGINE 100 UNITS/ML, PEN SQ-INSULIN SCH (22:14)
[2018-05-22] MEDS: NITROGLYCERIN OINT 2%, 1GM TP SCH (23:13)
[2018-05-23] VITALS (7 sets, daily range): BP systolic 94–138; BP diastolic 50–68
[2018-05-23 02:57] LABS: TROPONIN I 0.043 ng/mL (0.000-0.045)
[2018-05-23] MEDS: NITROGLYCERIN OINT 2%, 1GM TP SCH ×3 (05:10→17:40)
[2018-05-23] MEDS ORDERED: LISINOPRIL 20 MG TABLET PO SCH (09:00)
[2018-05-23] MEDS ORDERED: METOPROLOL TARTRATE 25 MG TABLET PO SCH (09:00)
[2018-05-23] MEDS: MAGNESIUM OXIDE 400 MG TABLET PO SCH (10:15)
[2018-05-23] MEDS: PREGABALIN 100 MG CAPSULE PO SCH ×3 (10:19→21:47)
[2018-05-23] MEDS: MULTIVITAMIN 1 TABLET PO SCH (10:19)
[2018-05-23] MEDS: ISOSORBIDE MONONITRATE ER 60 MG TABLET PO SCH (10:19)
[2018-05-23] MEDS: SITAGLIPTIN 50MG TABLET PO SCH (10:19)
[2018-05-23] MEDS: CALCIUM/VITAMIN D3 250-125 TABLET PO SCH (10:19)
[2018-05-23] MEDS: FERROUS SULFATE 325 MG TABLET PO SCH (10:20)
[2018-05-23] MEDS: ASPIRIN 81 MG TABLET EC PO SCH (10:20)
[2018-05-23] MEDS: TICAGRELOR 90 MG TABLET PO SCH ×3 (10:20→22:54)
[2018-05-23] MEDS: MELOXICAM 15 MG TABLET PO SCH (10:21)
[2018-05-23] MEDS: OMEPRAZOLE 20 MG CAPSULE.DR PO SCH (10:21)
[2018-05-23] MEDS: INSULIN LISPRO 100 UNITS/ML, PEN SQ-INSULIN SCH ×3 (10:22→17:22)
[2018-05-23] MEDS: METOPROLOL TARTRATE 25 MG TABLET PO SCH ×3 (10:22→22:55)
[2018-05-23 12:26] LABS: TROPONIN I 0.018 ng/mL (0.000-0.045)
[2018-05-23] MEDS: RANOLAZINE 500 MG TAB.ER.12H PO SCH ×3 (12:56→22:55)
[2018-05-23] MEDS: AMLODIPINE 2.5 MG TABLET PO SCH (12:56)
[2018-05-23 15:53] LABS: TROPONIN I 0.021 ng/mL (0.000-0.045)
[2018-05-23] MEDS: ENOXAPARIN 30 MG/0.3 ML SQ SCH (17:41)
[2018-05-23] MEDS: AMITRIPTYLINE 25 MG TABLET PO SCH ×2 (21:00→21:47)
[2018-05-23] MEDS: INSULIN GLARGINE 100 UNITS/ML, PEN SQ-INSULIN SCH (21:46)
[2018-05-23] MEDS: SIMVASTATIN 40 MG TABLET PO SCH ×2 (21:47→22:54)
[2018-05-23] MEDS: ROPINIROLE 1MG TABLET PO SCH ×2 (21:47→22:55)
[2018-05-23 22:35] LABS: BASOPHILS % (AUTO) 1 % (0-1); EOSINOPHILS # (AUTO) 0.38 x10^3/uL (0-0.4); EOSINOPHILS % (AUTO) 4 % (1-7); LYMPHOCYTES # (AUTO) 3.06 x10^3/uL (1-3.4); LYMPHOCYTES % (AUTO) 29 % (22-44); MD NO; MEAN CORPUSCULAR HEMOGLOBIN 29.4 pg (27.0-34.8); MEAN CORPUSCULAR HGB CONC 32.9 g/dL (32.4-35.8); MEAN CORPUSCULAR VOLUME 89.1 fL (80-100); MEAN PLATELET VOLUME 10.2 fL (7.4-10.4); MONOCYTES # (AUTO) 0.82 x10^3/uL (0.2-0.8); MONOCYTES % (AUTO) 8 % (2-9); NEUTROPHILS # (AUTO) 6.14 x10^3/uL (1.8-6.8); NEUTROPHILS % (AUTO) 59 % (42-75); PLATELET COUNT 238 x10^3/uL (130-400); RED BLOOD COUNT 3.76 x10^6/uL (3.82-5.3); RED CELL DISTRIBUTION WIDTH 13.7 % (9.6-15.2)
[2018-05-23 22:45] LABS: INTERNATIONAL NORMALIZED RATIO 1.03 (0.93-1.1); PROTHROMBIN TIME 10.6 Seconds (9.6-11.5)
[2018-05-23 22:48] LABS: ANION GAP 5 mmol/L (5-15); CALCIUM 9.1 mg/dL (8.5-10.1); CHLORIDE 107 mmol/L (98-107); CREATININE 1.18 mg/dL (0.55-1.02)
[2018-05-24 01:06] VITALS: BP 118/63
[2018-05-24] MEDS: NITROGLYCERIN OINT 2%, 1GM TP SCH ×4 (01:06→17:30)
[2018-05-24 05:44] LABS: ALBUMIN 3.3 g/dL (3.4-5.0); ANION GAP 8 mmol/L (5-15); CALCIUM 9.2 mg/dL (8.5-10.1); CHLORIDE 109 mmol/L (98-107)
[2018-05-24 05:45] LABS: CREATININE 1.21 mg/dL (0.55-1.02)
[2018-05-24 06:14] VITALS: BP 110/56
[2018-05-24 07:15] VITALS: BP 128/74
[2018-05-24] MEDS: INSULIN LISPRO 100 UNITS/ML, PEN SQ-INSULIN SCH ×3 (08:54→17:30)
[2018-05-24] MEDS: TICAGRELOR 90 MG TABLET PO SCH ×2 (08:56→20:20)
[2018-05-24] MEDS: ASPIRIN 81 MG TABLET EC PO SCH (08:56)
[2018-05-24] MEDS: AMLODIPINE 2.5 MG TABLET PO SCH (08:56)
[2018-05-24] MEDS: PREGABALIN 100 MG CAPSULE PO SCH ×2 (08:56→20:20)
[2018-05-24] MEDS: MULTIVITAMIN 1 TABLET PO SCH (08:57)
[2018-05-24] MEDS: SITAGLIPTIN 50MG TABLET PO SCH (08:58)
[2018-05-24] MEDS: MAGNESIUM OXIDE 400 MG TABLET PO SCH (08:58)
[2018-05-24] MEDS: MELOXICAM 15 MG TABLET PO SCH (08:59)
[2018-05-24] MEDS: LISINOPRIL 10 MG TABLET PO SCH (08:59)
[2018-05-24] MEDS: FERROUS SULFATE 325 MG TABLET PO SCH (08:59)
[2018-05-24] MEDS ORDERED: LISINOPRIL 10 MG TABLET PO SCH (09:00)
[2018-05-24] MEDS: METOPROLOL TARTRATE 25 MG TABLET PO SCH ×2 (09:00→20:20)
[2018-05-24] MEDS: CALCIUM/VITAMIN D3 250-125 TABLET PO SCH (09:00)
[2018-05-24] MEDS: OMEPRAZOLE 20 MG CAPSULE.DR PO SCH (09:00)
[2018-05-24] MEDS: RANOLAZINE 500 MG TAB.ER.12H PO SCH ×2 (09:24→20:20)
[2018-05-24] MEDS: ISOSORBIDE MONONITRATE ER 60 MG TABLET PO SCH (09:25)
[2018-05-24 13:31] VITALS: BP 112/67
[2018-05-24] MEDS: ENOXAPARIN 30 MG/0.3 ML SQ SCH (17:30)
[2018-05-24 20:10] VITALS: BP 129/80
[2018-05-24] MEDS: AMITRIPTYLINE 25 MG TABLET PO SCH (20:20)
[2018-05-24] MEDS: SIMVASTATIN 40 MG TABLET PO SCH (20:20)
[2018-05-24] MEDS: INSULIN GLARGINE 100 UNITS/ML, PEN SQ-INSULIN SCH (20:20)
[2018-05-24] MEDS: ROPINIROLE 1MG TABLET PO SCH (20:20)
[2018-05-25 01:37] VITALS: BP 106/57
[2018-05-25] MEDS: NITROGLYCERIN OINT 2%, 1GM TP SCH ×2 (01:39→09:15)
[2018-05-25 06:06] LABS: ALBUMIN 3.3 g/dL (3.4-5.0); ANION GAP 7 mmol/L (5-15); CHLORIDE 109 mmol/L (98-107); CREATININE 1.35 mg/dL (0.55-1.02)
[2018-05-25 06:22] LABS: HEMOGLOBIN A1C 8.3 % (4.2-6.3)
[2018-05-25 07:49] VITALS: BP 112/67
[2018-05-25] MEDS: CALCIUM/VITAMIN D3 250-125 TABLET PO SCH (09:16)
[2018-05-25] MEDS: OMEPRAZOLE 20 MG CAPSULE.DR PO SCH (09:16)
[2018-05-25] MEDS: MELOXICAM 15 MG TABLET PO SCH (09:16)
[2018-05-25] MEDS: SITAGLIPTIN 50MG TABLET PO SCH (09:16)
[2018-05-25] MEDS: LISINOPRIL 10 MG TABLET PO SCH (09:16)
[2018-05-25] MEDS: ASPIRIN 81 MG TABLET EC PO SCH (09:16)
[2018-05-25] MEDS: MULTIVITAMIN 1 TABLET PO SCH (09:16)
[2018-05-25] MEDS: METOPROLOL TARTRATE 25 MG TABLET PO SCH (09:16)
[2018-05-25] MEDS: ISOSORBIDE MONONITRATE ER 60 MG TABLET PO SCH (09:16)
[2018-05-25] MEDS: AMLODIPINE 2.5 MG TABLET PO SCH (09:16)
[2018-05-25] MEDS: RANOLAZINE 500 MG TAB.ER.12H PO SCH (09:16)
[2018-05-25] MEDS: MAGNESIUM OXIDE 400 MG TABLET PO SCH (09:16)
[2018-05-25] MEDS: TICAGRELOR 90 MG TABLET PO SCH (09:17)
[2018-05-25] MEDS: FERROUS SULFATE 325 MG TABLET PO SCH (09:17)
[2018-05-25] MEDS: PREGABALIN 100 MG CAPSULE PO SCH (09:17)
[2018-05-25] MEDS: INSULIN LISPRO 100 UNITS/ML, PEN SQ-INSULIN SCH ×2 (10:05→12:15)
[2018-05-25] MEDS ORDERED: RANO500T2 PO (14:08)
[2018-05-25] MEDS ORDERED: AMLO2.5T PO (14:08)
[2018-05-25] MEDS ORDERED: METO25TA35 PO (14:08)
[2018-05-25] MEDS ORDERED: LISI-167 PO (14:08)
[2018-05-25 14:16] VITALS: BP 132/78
== END 2018-05-25 15:13 | disposition home or self-care (01) | DRG 303 ==
LOC: ED 16:05 → EDIP 16:06 → SUATTDRO 16:13 → ED 16:35 → 5SO 17:51 → DCLOUNGE 05-25 15:06
PROVIDERS: ADMIT Internal Medicine; ATTEND Internal Medicine
DX: I25.110 Atherosclerotic heart disease of native coronary artery with unstable angina pectoris (principal); I50.30 Unspecified diastolic (congestive) heart failure; J96.11 Chronic respiratory failure with hypoxia; E11.42 Type 2 diabetes mellitus with diabetic polyneuropathy; E78.5 Hyperlipidemia, unspecified; G25.81 Restless legs syndrome; G89.29 Other chronic pain; I11.0 Hypertensive heart disease with heart failure; J44.9 Chronic obstructive pulmonary disease, unspecified; K21.9 Gastro-esophageal reflux disease without esophagitis; K22.70 Barrett's esophagus without dysplasia; G47.33 Obstructive sleep apnea (adult) (pediatric); Z66 Do not resuscitate; I25.2 Old myocardial infarction; Z79.4 Long term (current) use of insulin; Z99.81 Dependence on supplemental oxygen; Z80.0 Family history of malignant neoplasm of digestive organs; Z87.891 Personal history of nicotine dependence; Z90.710 Acquired absence of both cervix and uterus; Z90.49 Acquired absence of other specified parts of digestive tract; Z88.8 Allergy status to other drugs, medicaments and biological substances
CPT/HCPCS: 36415; 36600; 70450; 71045; 80048; 80053; 82040; 82803; 82962; 83036; 83880; 84484; 85025; 85610; 85730; 93005; 93306; 99285; J1650; J1815

== ENCOUNTER 2018-06-10 13:06 | Inpatient (IN) | payer MEDICARE ==
[~2018-06-10] VITALS: Ht 157.5 cm; Wt 92.3 kg
[~2018-06-10 13:06] MED LIST changes: +AMLO2.5T PO; +ATOR40TA78 PO; +RANO500T2 PO
[2018-06-10] MEDS ORDERED: HEPARIN 5,000 UNITS/ML, 1ML ONE (13:26)
[2018-06-10] MEDS ORDERED: HEPARIN 25,000 UNITS/500ML PMX 500 ML ONE (13:27)
[2018-06-10] MEDS ORDERED: HEPARIN 25,000 UNITS/500ML PMX 500 ML IV PRN (13:30)
[2018-06-10] MEDS ORDERED: HEPARIN 5,000 UNITS/ML, 1ML IV PRN (13:30)
[2018-06-10] MEDS ORDERED: INSU100C SQ-INSULIN (13:42)
[2018-06-10 13:44] LABS: ALANINE AMINOTRANSFERASE 43 U/L (12-78); ALBUMIN 3.6 g/dL (3.4-5.0); ANION GAP 10 mmol/L (5-15); CALCIUM 9.2 mg/dL (8.5-10.1); CHLORIDE 105 mmol/L (98-107); CREATININE 1.71 mg/dL (0.55-1.02)
[2018-06-10 13:50] LABS: ALKALINE PHOSPHATASE 138 U/L (45-117); BILIRUBIN,TOTAL 0.6 mg/dL (0.2-1.0); TOTAL PROTEIN 7.3 g/dL (6.4-8.2)
[2018-06-10] MEDS ORDERED: [UNRECOGNIZED DRUG - OTHER] PO (14:23)
[2018-06-10] MEDS ORDERED: METF500T5 PO ×2 (14:23)
[2018-06-10] MEDS ORDERED: FERR140T2 PO (14:24)
[2018-06-10] MEDS ORDERED: ASPI-496 PO (14:24)
[2018-06-10 15:15] VITALS: BP 160/59
[2018-06-10] MEDS ORDERED: HYDROcodone/APAP 5/325 TABLET PO PRN (16:00)
[2018-06-10] MEDS ORDERED: ONDANSETRON ODT 4 MG PO PRN (16:00)
[2018-06-10] MEDS ORDERED: morphine SULFATE 10 MG/ML, 1ML IVPush PRN (16:00)
[2018-06-10] MEDS ORDERED: LABETALOL 5MG/ML, 20ML IVPush PRN (16:00)
[2018-06-10] MEDS ORDERED: NITROGLYCERIN 0.4 MG BOTTLE (25 TABS) SL PRN ×2 (16:00)
[2018-06-10] MEDS ORDERED: ONDANSETRON 2MG/ML, 2ML IVPush PRN (16:00)
[2018-06-10] MEDS ORDERED: INSULIN LISPRO 100 UNITS/ML, PEN SQ-INSULIN ONE (16:00)
[2018-06-10] MEDS ORDERED: INSULIN LISPRO 25 UNIT SQ-INSULIN SCH (16:00)
[2018-06-10] MEDS: PREGABALIN 100 MG CAPSULE PO SCH ×2 (16:30→20:34)
[2018-06-10 19:50] VITALS: BP 137/66
[2018-06-10] MEDS: AMLODIPINE 2.5 MG TABLET PO SCH (20:34)
[2018-06-10] MEDS: RANOLAZINE 500 MG TAB.ER.12H PO SCH (20:34)
[2018-06-10] MEDS: ROPINIROLE 1MG TABLET PO SCH (20:34)
[2018-06-10] MEDS: ATORVASTATIN 40 MG TABLET PO SCH (20:35)
[2018-06-10] MEDS: TICAGRELOR 90 MG TABLET PO SCH (20:35)
[2018-06-10] MEDS: METOPROLOL TARTRATE 25 MG TABLET PO SCH (20:35)
[2018-06-10] MEDS: ASPIRIN 81 MG TABLET EC PO SCH (20:35)
[2018-06-10] MEDS: AMITRIPTYLINE 25 MG TABLET PO SCH (20:35)
[2018-06-10] MEDS: INSULIN GLARGINE 100 UNITS/ML, PEN SQ-INSULIN SCH (20:36)
[2018-06-10] MEDS: INSULIN LISPRO 100 UNITS/ML, PEN VERY HIGH DOSE SS SQ-INSULIN SCH (20:36)
[2018-06-10] MEDS ORDERED: metFORMIN 500 MG TABLET PO SCH ×2 (21:00)
[2018-06-10] MEDS ORDERED: [UNRECOGNIZED DRUG - OTHER] PO SCH (21:00)
[2018-06-11] MEDS ORDERED: HEPARIN 5,000 UNITS/ML, 1ML IV ONE (02:00)
[2018-06-11] MEDS ORDERED: HEPARIN 25,000 UNITS/500ML PMX 500 ML IV PRN (02:00)
[2018-06-11] MEDS ORDERED: HEPARIN 5,000 UNITS/ML, 1ML IV PRN (02:00)
[2018-06-11 03:13] VITALS: BP 136/81
[2018-06-11 03:20] LABS: BASOPHILS # (AUTO) 0.09 x10^3/uL (0-0.1); BASOPHILS % (AUTO) 1 % (0-1); EOSINOPHILS # (AUTO) 0.48 x10^3/uL (0-0.4); EOSINOPHILS % (AUTO) 4 % (1-7); LYMPHOCYTES # (AUTO) 3.17 x10^3/uL (1-3.4); LYMPHOCYTES % (AUTO) 24 % (22-44); MD NO; MEAN CORPUSCULAR HEMOGLOBIN 29.9 pg (27.0-34.8); MEAN CORPUSCULAR HGB CONC 33.5 g/dL (32.4-35.8); MEAN PLATELET VOLUME 10.8 fL (7.4-10.4); MONOCYTES # (AUTO) 1.09 x10^3/uL (0.2-0.8); MONOCYTES % (AUTO) 8 % (2-9); NEUTROPHILS # (AUTO) 8.26 x10^3/uL (1.8-6.8); NEUTROPHILS % (AUTO) 63 % (42-75); PLATELET COUNT 245 x10^3/uL (130-400); RED BLOOD COUNT 3.72 x10^6/uL (3.82-5.3); RED CELL DISTRIBUTION WIDTH 12.8 % (9.6-15.2)
[2018-06-11 03:38] LABS: ANION GAP 8 mmol/L (5-15); CALCIUM 9.1 mg/dL (8.5-10.1); CHLORIDE 108 mmol/L (98-107); CREATININE 1.59 mg/dL (0.55-1.02)
[2018-06-11] MEDS: INSULIN LISPRO 100 UNITS/ML, PEN VERY HIGH DOSE SS SQ-INSULIN SCH ×4 (07:00→21:37)
[2018-06-11 07:32] VITALS: BP 150/77
[2018-06-11] MEDS: RANOLAZINE 500 MG TAB.ER.12H PO SCH ×2 (08:24→21:38)
[2018-06-11] MEDS: CALCIUM/VITAMIN D3 250-125 TABLET PO SCH (08:25)
[2018-06-11] MEDS: MULTIVITAMIN 1 TABLET PO SCH (08:25)
[2018-06-11] MEDS: OMEPRAZOLE 20 MG CAPSULE.DR PO SCH (08:25)
[2018-06-11] MEDS: METOPROLOL TARTRATE 25 MG TABLET PO SCH ×2 (08:25→21:38)
[2018-06-11] MEDS: LISINOPRIL 10 MG TABLET PO SCH (08:25)
[2018-06-11] MEDS: AMLODIPINE 2.5 MG TABLET PO SCH ×2 (08:25→21:38)
[2018-06-11] MEDS: PREGABALIN 100 MG CAPSULE PO SCH ×3 (08:26→21:38)
[2018-06-11] MEDS: ISOSORBIDE MONONITRATE ER 60 MG TABLET PO SCH (08:26)
[2018-06-11] MEDS: MAGNESIUM OXIDE 400 MG TABLET PO SCH ×2 (08:26→21:38)
[2018-06-11] MEDS ORDERED: ASPIRIN 81 MG PO SCH (09:00)
[2018-06-11] MEDS ORDERED: SITAGLIPTIN 50MG TABLET PO SCH (09:00)
[2018-06-11 11:35] VITALS: BP 108/63
[2018-06-11] MEDS ORDERED: LIDOCAINE-MPF 2%, 2ML ONE (12:20)
[2018-06-11] MEDS ORDERED: BIVALIRUDIN 250 MG ONE ×2 (12:20→13:46)
[2018-06-11] MEDS ORDERED: VERAPAMIL 2.5 MG/ML, 2ML ONE (12:20)
[2018-06-11] MEDS ORDERED: HEPARIN 1,000 UNITS/ML, 10ML ONE (12:20)
[2018-06-11] MEDS ORDERED: FENTANYL PF 100 MCG/2ML ONE (12:20)
[2018-06-11] MEDS ORDERED: MIDAZOLAM 1 MG/ML, 5ML ONE (12:20)
[2018-06-11] MEDS ORDERED: TICAGRELOR 90 MG TABLET ONE (12:20)
[2018-06-11] MEDS: TICAGRELOR 90 MG TABLET PO SCH ×2 (12:44→21:38)
[2018-06-11] MEDS ORDERED: LIDOCAINE 1%, 50ML ONE (13:01)
[2018-06-11] MEDS ORDERED: BIVALIRUDIN 250 MG in DEXTROSE 5% 50 ML IV SCH (13:40)
[2018-06-11 15:36] VITALS: BP 116/69
[2018-06-11] MEDS: FERROUS SULFATE 325 MG TABLET PO SCH (16:23)
[2018-06-11] MEDS ORDERED: MAGNESIUM SULFATE 3 GM in SODIUM CHLORIDE 0.9% 100 ML IV ONE (18:30)
[2018-06-11 19:59] VITALS: BP 132/72
[2018-06-11] MEDS: INSULIN GLARGINE 100 UNITS/ML, PEN SQ-INSULIN SCH (21:37)
[2018-06-11] MEDS: ASPIRIN 81 MG TABLET EC PO SCH (21:37)
[2018-06-11] MEDS: AMITRIPTYLINE 25 MG TABLET PO SCH (21:38)
[2018-06-11] MEDS: ATORVASTATIN 40 MG TABLET PO SCH (21:38)
[2018-06-11] MEDS: ROPINIROLE 1MG TABLET PO SCH (21:38)
[2018-06-12 03:39] VITALS: BP 103/58
[2018-06-12 06:08] LABS: ALBUMIN 3.3 g/dL (3.4-5.0); ANION GAP 8 mmol/L (5-15); CALCIUM 8.9 mg/dL (8.5-10.1); CHLORIDE 107 mmol/L (98-107); CREATININE 1.75 mg/dL (0.55-1.02)
[2018-06-12] MEDS: INSULIN LISPRO 100 UNITS/ML, PEN VERY HIGH DOSE SS SQ-INSULIN SCH ×2 (07:00→11:29)
[2018-06-12 07:53] VITALS: BP 101/56
[2018-06-12] MEDS: OMEPRAZOLE 20 MG CAPSULE.DR PO SCH (08:26)
[2018-06-12] MEDS: TICAGRELOR 90 MG TABLET PO SCH (08:26)
[2018-06-12] MEDS: AMLODIPINE 2.5 MG TABLET PO SCH (08:26)
[2018-06-12] MEDS: CALCIUM/VITAMIN D3 250-125 TABLET PO SCH (08:26)
[2018-06-12] MEDS: METOPROLOL TARTRATE 25 MG TABLET PO SCH (08:26)
[2018-06-12] MEDS: RANOLAZINE 500 MG TAB.ER.12H PO SCH (08:26)
[2018-06-12] MEDS: FERROUS SULFATE 325 MG TABLET PO SCH (08:27)
[2018-06-12] MEDS: MULTIVITAMIN 1 TABLET PO SCH (08:27)
[2018-06-12] MEDS: MAGNESIUM OXIDE 400 MG TABLET PO SCH (08:27)
[2018-06-12] MEDS: LISINOPRIL 10 MG TABLET PO SCH (08:27)
[2018-06-12] MEDS: PREGABALIN 100 MG CAPSULE PO SCH (08:32)
[2018-06-12] MEDS: ISOSORBIDE MONONITRATE ER 60 MG TABLET PO SCH (08:32)
[2018-06-12 10:31] VITALS: BP 105/65
[2018-06-12] MEDS ORDERED: SITAGLIPTIN 25MG TABLET PO SCH (11:00)
== END 2018-06-12 13:00 | disposition home or self-care (01) | DRG 250 ==
LOC: ED 14:00 → INTOOBSV 14:01 → 5SO 14:01 → OBSVTOIN 14:01 → ED 14:14 → DCLOUNGE 06-12 12:33
PROVIDERS: ADMIT Hospitalist; ATTEND Hospitalist
PROC: 4A023N7 Measurement of Cardiac Sampling and Pressure, Left Heart, Percutaneous Approach (ICD-10-PCS; principal; 2018-06-11)
PROC: B2111ZZ Fluoroscopy of Multiple Coronary Arteries using Low Osmolar Contrast (ICD-10-PCS; 2018-06-11)
PROC: B2151ZZ Fluoroscopy of Left Heart using Low Osmolar Contrast (ICD-10-PCS; 2018-06-11)
PROC: 02703ZZ Dilation of Coronary Artery, One Artery, Percutaneous Approach (ICD-10-PCS; 2018-06-11)
DX: T82.855A Stenosis of coronary artery stent, initial encounter (principal); I21.4 Non-ST elevation (NSTEMI) myocardial infarction; I25.110 Atherosclerotic heart disease of native coronary artery with unstable angina pectoris; E11.65 Type 2 diabetes mellitus with hyperglycemia; E66.9 Obesity, unspecified; Y83.1 Surgical operation with implant of artificial internal device as the cause of abnormal reaction of the patient, or of later complication, without mention of misadventure at the time of the procedure; E78.5 Hyperlipidemia, unspecified; E87.5 Hyperkalemia; I25.2 Old myocardial infarction; I48.91 Unspecified atrial fibrillation; I65.22 Occlusion and stenosis of left carotid artery; J44.9 Chronic obstructive pulmonary disease, unspecified; K21.9 Gastro-esophageal reflux disease without esophagitis; Z87.891 Personal history of nicotine dependence; Z79.4 Long term (current) use of insulin; Z80.0 Family history of malignant neoplasm of digestive organs; Z90.710 Acquired absence of both cervix and uterus; I12.9 Hypertensive chronic kidney disease with stage 1 through stage 4 chronic kidney disease, or unspecified chronic kidney disease; E11.22 Type 2 diabetes mellitus with diabetic chronic kidney disease; N18.9 Chronic kidney disease, unspecified; R53.81 Other malaise; Z90.49 Acquired absence of other specified parts of digestive tract; Z98.42 Cataract extraction status, left eye; Z98.41 Cataract extraction status, right eye; Z88.8 Allergy status to other drugs, medicaments and biological substances; Z68.37 Body mass index [BMI] 37.0-37.9, adult
CPT/HCPCS: 36415; 80048; 80053; 82040; 82962; 83735; 84100; 84484; 85025; 85520; 92920; 93005; 93458; 96374; 99156; 99157; 99285; C1769; C1894; J0583; J1644; J2250; J3010; J3475; J3490; 92928; C1725; C1874; C1887; J1815; Q9967

== ENCOUNTER 2018-07-28 15:19 | Inpatient (IN) | payer MEDICARE ==
[~2018-07-28] VITALS: Ht 172.7 cm; Wt 93.8 kg
[2018-07-28] VITALS (9 sets, daily range): BP systolic 98–220; BP diastolic 62–112
[~2018-07-28 15:19] MED LIST changes: -AMLO2.5T PO; +AMLO2.5T3 PO; +ASPI-496 PO; +FERR140T3 PO; +HEPA50002 SQ; +INSU100C SQ-INSULIN; +LEVO500T47 PO; +METF500T17 PO; -METF500T5 PO; +[UNRECOGNIZED DRUG - OTHER] PO
[2018-07-28 16:13] LABS: TROPONIN I 0.568 ng/mL (0.000-0.045)
[2018-07-28] MEDS ORDERED: SODIUM CHLORIDE FLUSH 10ML SYR IVF PRN (17:00)
[2018-07-28] MEDS ORDERED: HEPARIN 5,000 UNITS/ML, 1ML IV ONE (18:00)
[2018-07-28] MEDS ORDERED: NITROGLYCERIN SINGLE TAB 0.4 MG SL ONE ×2 (18:10→18:22)
[2018-07-28] MEDS: NITROGLYCERIN SINGLE TAB 0.4 MG SL PRN ×2 (18:12→18:20)
[2018-07-28] MEDS ORDERED: LABETALOL 5MG/ML, 20ML IVPush PRN (19:00)
[2018-07-28] MEDS ORDERED: ONDANSETRON ODT 4 MG PO PRN (19:00)
[2018-07-28] MEDS ORDERED: ONDANSETRON 2MG/ML, 2ML IVPush PRN (19:00)
[2018-07-28] MEDS ORDERED: ACETAMINOPHEN 325 MG TABLET PO PRN (19:00)
[2018-07-28] MEDS ORDERED: hydrALAzine 20 MG/ML, 1ML IVPush PRN (19:00)
[2018-07-28] MEDS ORDERED: NITROGLYCERIN 0.4 MG/SPRAY SL PRN (19:00)
[2018-07-28 19:18] LABS: ANION GAP 11 mmol/L (5-15); CALCIUM 8.7 mg/dL (8.5-10.1); CHLORIDE 110 mmol/L (98-107); CREATININE 1.77 mg/dL (0.55-1.02)
[2018-07-28 19:20] LABS: BASOPHILS # (AUTO) 0.09 x10^3/uL (0-0.1); BASOPHILS % (AUTO) 1 % (0-1); EOSINOPHILS % (AUTO) 1 % (1-7); LYMPHOCYTES # (AUTO) 2.81 x10^3/uL (1-3.4); LYMPHOCYTES % (AUTO) 24 % (22-44); MD NO; MEAN CORPUSCULAR HEMOGLOBIN 30.6 pg (27.0-34.8); MEAN CORPUSCULAR HGB CONC 33.6 g/dL (32.4-35.8); MEAN CORPUSCULAR VOLUME 90.9 fL (80-100); MEAN PLATELET VOLUME 10.8 fL (7.4-10.4); MONOCYTES # (AUTO) 0.95 x10^3/uL (0.2-0.8); MONOCYTES % (AUTO) 8 % (2-9); NEUTROPHILS # (AUTO) 7.77 x10^3/uL (1.8-6.8); NEUTROPHILS % (AUTO) 66 % (42-75); PLATELET COUNT 262 x10^3/uL (130-400); RED CELL DISTRIBUTION WIDTH 13.4 % (9.6-15.2)
[2018-07-28 19:28] LABS: FREE T4 (FREE THYROXINE) 0.91 ng/dL (0.76-1.46)
[2018-07-28] MEDS ORDERED: NITROGLYCERIN 0.4 MG BOTTLE (25 TABS) SL ONE (19:32)
[2018-07-28] MEDS: NITROGLYCERIN 0.4 MG BOTTLE (25 TABS) SL PRN ×4 (19:41→23:25)
[2018-07-28 19:43] LABS: HEMOGLOBIN A1C 7.2 % (4.2-6.3)
[2018-07-28] MEDS: RANOLAZINE 500 MG TAB.ER.12H PO SCH (20:41)
[2018-07-28] MEDS: ROPINIROLE 1MG TABLET PO SCH (20:41)
[2018-07-28] MEDS: TICAGRELOR 90 MG TABLET PO SCH (20:41)
[2018-07-28] MEDS: METOPROLOL TARTRATE 25 MG TABLET PO SCH (20:41)
[2018-07-28] MEDS: PREGABALIN 100 MG CAPSULE PO SCH (20:41)
[2018-07-28] MEDS: ATORVASTATIN 40 MG TABLET PO SCH (20:42)
[2018-07-28] MEDS: AMITRIPTYLINE 25 MG TABLET PO SCH (20:42)
[2018-07-28] MEDS: AMLODIPINE 5 MG TABLET PO SCH (20:42)
[2018-07-28] MEDS ORDERED: INSULIN LISPRO 100 UNITS/ML, PEN SQ-INSULIN SCH ×3 (21:00→21:29)
[2018-07-28] MEDS: morphine SULFATE 10 MG/ML, 1ML IVPush PRN (21:17)
[2018-07-28] MEDS: FERROUS SULFATE 325 MG TABLET PO SCH (21:32)
[2018-07-28] MEDS: INSULIN GLARGINE 100 UNITS/ML, PEN SQ-INSULIN SCH (21:33)
[2018-07-28] MEDS: HEPARIN 25,000 UNITS/500ML PMX 500 ML IV PRN (21:38)
[2018-07-28] MEDS: INSULIN LISPRO 100 UNITS/ML, PEN SQ-INSULIN SCH (22:15)
[2018-07-29] VITALS (11 sets, daily range): BP systolic 89–220; BP diastolic 51–92
[2018-07-29 03:49] LABS: BASOPHILS # (AUTO) 0.07 x10^3/uL (0-0.1); BASOPHILS % (AUTO) 1 % (0-1); EOSINOPHILS # (AUTO) 0.33 x10^3/uL (0-0.4); EOSINOPHILS % (AUTO) 3 % (1-7); LYMPHOCYTES # (AUTO) 3.39 x10^3/uL (1-3.4); LYMPHOCYTES % (AUTO) 27 % (22-44); MD NO; MEAN CORPUSCULAR HEMOGLOBIN 30.3 pg (27.0-34.8); MEAN CORPUSCULAR HGB CONC 33.3 g/dL (32.4-35.8); MEAN CORPUSCULAR VOLUME 90.8 fL (80-100); MEAN PLATELET VOLUME 10.3 fL (7.4-10.4); MONOCYTES # (AUTO) 1.04 x10^3/uL (0.2-0.8); MONOCYTES % (AUTO) 8 % (2-9); NEUTROPHILS # (AUTO) 7.92 x10^3/uL (1.8-6.8); NEUTROPHILS % (AUTO) 62 % (42-75); PLATELET COUNT 253 x10^3/uL (130-400); RED BLOOD COUNT 3.69 x10^6/uL (3.82-5.3); RED CELL DISTRIBUTION WIDTH 13.2 % (9.6-15.2)
[2018-07-29 04:02] LABS: ANION GAP 8 mmol/L (5-15); CALCIUM 8.7 mg/dL (8.5-10.1); CHLORIDE 106 mmol/L (98-107)
[2018-07-29 04:04] LABS: CREATININE 1.48 mg/dL (0.55-1.02)
[2018-07-29] MEDS: HEPARIN 5,000 UNITS/ML, 1ML IV PRN ×2 (04:18→16:28)
[2018-07-29 06:32] LABS: CULTURE INDICATED? YES; MICROSCOPIC INDICATED
[2018-07-29] MEDS: OMEPRAZOLE 20 MG CAPSULE.DR PO SCH (08:33)
[2018-07-29] MEDS: ISOSORBIDE MONONITRATE ER 60 MG TABLET PO SCH (08:33)
[2018-07-29] MEDS: METOPROLOL TARTRATE 25 MG TABLET PO SCH ×2 (08:33→21:13)
[2018-07-29] MEDS: ASPIRIN 81 MG TABLET EC PO SCH (08:33)
[2018-07-29] MEDS: AMLODIPINE 5 MG TABLET PO SCH ×2 (08:33→21:13)
[2018-07-29] MEDS: PREGABALIN 100 MG CAPSULE PO SCH ×3 (08:33→21:13)
[2018-07-29] MEDS: MULTIVITAMIN 1 TABLET PO SCH (08:33)
[2018-07-29] MEDS: RANOLAZINE 500 MG TAB.ER.12H PO SCH ×2 (08:34→21:12)
[2018-07-29] MEDS: TICAGRELOR 90 MG TABLET PO SCH ×2 (08:34→21:12)
[2018-07-29] MEDS: CALCIUM/VITAMIN D3 250-125 TABLET PO SCH (08:34)
[2018-07-29] MEDS: MAGNESIUM OXIDE 400 MG TABLET PO SCH (08:34)
[2018-07-29] MEDS: FERROUS SULFATE 325 MG TABLET PO SCH (08:34)
[2018-07-29] MEDS ORDERED: MAGNESIUM SULFATE PMX 2GM/50ML 50 ML IV ONE (09:30)
[2018-07-29] MEDS: SODIUM CHLORIDE 0.9% 1,000 ML IV SCH (10:45)
[2018-07-29] MEDS: INSULIN LISPRO 100 UNITS/ML, PEN SQ-INSULIN SCH ×3 (12:45→21:11)
[2018-07-29] MEDS ORDERED: GLUCAGON 1 MG IM PRN (16:30)
[2018-07-29] MEDS ORDERED: DEXTROSE 4 GM TAB.CHEW PO PRN (16:30)
[2018-07-29] MEDS ORDERED: DEXTROSE 50%, 50ML SYRINGE IVPush PRN (16:30)
[2018-07-29] MEDS: HEPARIN 25,000 UNITS/500ML PMX 500 ML IV PRN (16:34)
[2018-07-29] MEDS: NITROGLYCERIN 0.4 MG BOTTLE (25 TABS) SL PRN ×3 (19:42→21:11)
[2018-07-29] MEDS: INSULIN GLARGINE 100 UNITS/ML, PEN SQ-INSULIN SCH (21:11)
[2018-07-29] MEDS: ATORVASTATIN 40 MG TABLET PO SCH (21:12)
[2018-07-29] MEDS: ROPINIROLE 1MG TABLET PO SCH (21:12)
[2018-07-29] MEDS: AMITRIPTYLINE 25 MG TABLET PO SCH (21:13)
[2018-07-29] MEDS: SODIUM CHLORIDE FLUSH 10ML SYR IVF SCH (21:14)
[2018-07-29] MEDS: morphine SULFATE 10 MG/ML, 1ML IVPush PRN (21:49)
[2018-07-30] VITALS (8 sets, daily range): BP systolic 91–192; BP diastolic 51–102
[2018-07-30] MEDS: SODIUM CHLORIDE 0.9% 1,000 ML IV SCH ×4 (00:37→22:24)
[2018-07-30 04:51] LABS: ANION GAP 7 mmol/L (5-15); CALCIUM 8.7 mg/dL (8.5-10.1); CHLORIDE 109 mmol/L (98-107)
[2018-07-30 04:52] LABS: CREATININE 1.37 mg/dL (0.55-1.02)
[2018-07-30] MEDS: INSULIN LISPRO 100 UNITS/ML, PEN SQ-INSULIN SCH ×4 (07:00→20:17)
[2018-07-30] MEDS: RANOLAZINE 500 MG TAB.ER.12H PO SCH ×2 (08:31→20:12)
[2018-07-30] MEDS: METOPROLOL TARTRATE 25 MG TABLET PO SCH ×2 (08:31→20:10)
[2018-07-30] MEDS: PREGABALIN 100 MG CAPSULE PO SCH ×3 (08:31→20:10)
[2018-07-30] MEDS: ISOSORBIDE MONONITRATE ER 60 MG TABLET PO SCH (08:31)
[2018-07-30] MEDS: AMLODIPINE 5 MG TABLET PO SCH ×2 (08:31→20:10)
[2018-07-30] MEDS: MAGNESIUM OXIDE 400 MG TABLET PO SCH (08:32)
[2018-07-30] MEDS: TICAGRELOR 90 MG TABLET PO SCH (08:32)
[2018-07-30] MEDS: OMEPRAZOLE 20 MG CAPSULE.DR PO SCH (08:32)
[2018-07-30] MEDS: ASPIRIN 81 MG TABLET EC PO SCH (08:32)
[2018-07-30] MEDS: SODIUM CHLORIDE FLUSH 10ML SYR IVF SCH ×2 (08:33→20:09)
[2018-07-30] MEDS ORDERED: MIDAZOLAM 1 MG/ML, 5ML ONE (13:32)
[2018-07-30] MEDS ORDERED: VERAPAMIL 2.5 MG/ML, 2ML ONE (13:32)
[2018-07-30] MEDS ORDERED: FENTANYL PF 100 MCG/2ML ONE (13:32)
[2018-07-30] MEDS ORDERED: HEPARIN 1,000 UNITS/ML, 10ML ONE (13:32)
[2018-07-30] MEDS ORDERED: BIVALIRUDIN 250 MG ONE (13:32)
[2018-07-30] MEDS: FERROUS SULFATE 325 MG TABLET PO SCH (15:09)
[2018-07-30] MEDS: MULTIVITAMIN 1 TABLET PO SCH (15:09)
[2018-07-30] MEDS: GUAIFENESIN/COD200MG-20MG/10ML LIQUID PO PRN (15:10)
[2018-07-30] MEDS: CALCIUM/VITAMIN D3 250-125 TABLET PO SCH (15:10)
[2018-07-30] MEDS: HEPARIN 25,000 UNITS/500ML PMX 500 ML IV PRN (18:46)
[2018-07-30] MEDS ORDERED: NITROGLYCERIN 0.4 MG/SPRAY SL PRN (19:00)
[2018-07-30] MEDS ORDERED: NITROGLYCERIN 0.4 MG BOTTLE (25 TABS) SL PRN (19:00)
[2018-07-30] MEDS: NITROGLYCERIN 0.4 MG BOTTLE (25 TABS) SL PRN ×3 (19:16→19:28)
[2018-07-30] MEDS: ATORVASTATIN 40 MG TABLET PO SCH (20:09)
[2018-07-30] MEDS: morphine SULFATE 10 MG/ML, 1ML IVPush PRN (20:09)
[2018-07-30] MEDS: AMITRIPTYLINE 25 MG TABLET PO SCH (20:09)
[2018-07-30] MEDS: ROPINIROLE 1MG TABLET PO SCH (20:12)
[2018-07-30] MEDS: INSULIN GLARGINE 100 UNITS/ML, PEN SQ-INSULIN SCH (20:17)
[2018-07-30] MEDS ORDERED: MORPHINE SULFATE 4 MG/ML, 1ML IVPush ONE (21:00)
[2018-07-30] MEDS: NITROGLYCERIN OINT 2%, 1GM TP SCH (21:08)
[2018-07-31] MEDS: HEPARIN 5,000 UNITS/ML, 1ML IV PRN ×2 (00:17→13:08)
[2018-07-31 00:31] VITALS: BP 112/48
[2018-07-31] MEDS: NITROGLYCERIN OINT 2%, 1GM TP SCH ×4 (03:54→20:20)
[2018-07-31] MEDS: SODIUM CHLORIDE 0.9% 1,000 ML IV SCH (05:12)
[2018-07-31 07:42] VITALS: BP 129/74
[2018-07-31] MEDS: PREGABALIN 100 MG CAPSULE PO SCH ×3 (08:54→20:18)
[2018-07-31] MEDS: OMEPRAZOLE 20 MG CAPSULE.DR PO SCH (08:54)
[2018-07-31] MEDS: RANOLAZINE 500 MG TAB.ER.12H PO SCH ×2 (08:54→20:18)
[2018-07-31] MEDS: MAGNESIUM OXIDE 400 MG TABLET PO SCH (08:55)
[2018-07-31] MEDS: AMLODIPINE 5 MG TABLET PO SCH ×2 (08:55→20:18)
[2018-07-31] MEDS: ISOSORBIDE MONONITRATE ER 60 MG TABLET PO SCH (08:55)
[2018-07-31] MEDS: FERROUS SULFATE 325 MG TABLET PO SCH (08:55)
[2018-07-31] MEDS: SODIUM CHLORIDE FLUSH 10ML SYR IVF SCH ×2 (08:56→20:17)
[2018-07-31] MEDS: CALCIUM/VITAMIN D3 250-125 TABLET PO SCH (08:56)
[2018-07-31] MEDS: ASPIRIN 81 MG TABLET EC PO SCH (08:56)
[2018-07-31] MEDS: MULTIVITAMIN 1 TABLET PO SCH (08:56)
[2018-07-31] MEDS: METOPROLOL TARTRATE 25 MG TABLET PO SCH ×2 (08:56→20:17)
[2018-07-31] MEDS: HEPARIN 25,000 UNITS/500ML PMX 500 ML IV PRN (11:36)
[2018-07-31] MEDS: INSULIN LISPRO 100 UNITS/ML, PEN SQ-INSULIN SCH ×3 (12:09→20:19)
[2018-07-31 13:34] VITALS: BP 116/66
[2018-07-31 20:04] VITALS: BP 131/76
[2018-07-31] MEDS: AMITRIPTYLINE 25 MG TABLET PO SCH (20:17)
[2018-07-31] MEDS: ATORVASTATIN 40 MG TABLET PO SCH (20:17)
[2018-07-31] MEDS: ROPINIROLE 1MG TABLET PO SCH (20:18)
[2018-07-31] MEDS: INSULIN GLARGINE 100 UNITS/ML, PEN SQ-INSULIN SCH (20:19)
[2018-07-31 20:50] VITALS: BP 141/84
[2018-08-01] VITALS (14 sets, daily range): BP systolic 103–136; BP diastolic 57–76
[2018-08-01] MEDS: DOCUSATE 100 MG CAPSULE PO PRN ×2 (00:23→09:06)
[2018-08-01] MEDS ORDERED: FUROSEMIDE 40 MG/4 ML IV PRN (01:30)
[2018-08-01] MEDS: HEPARIN 25,000 UNITS/500ML PMX 500 ML IV PRN ×2 (01:32→16:31)
[2018-08-01] MEDS: NITROGLYCERIN OINT 2%, 1GM TP SCH ×4 (04:09→23:26)
[2018-08-01] MEDS ORDERED: DOPAMINE/D5W PMX 400 MG/250 ML ONE (06:52)
[2018-08-01] MEDS: INSULIN LISPRO 100 UNITS/ML, PEN SQ-INSULIN SCH ×4 (09:04→23:49)
[2018-08-01] MEDS: PREGABALIN 100 MG CAPSULE PO SCH ×3 (09:05→23:30)
[2018-08-01] MEDS: MULTIVITAMIN 1 TABLET PO SCH (09:05)
[2018-08-01] MEDS: OMEPRAZOLE 20 MG CAPSULE.DR PO SCH (09:05)
[2018-08-01] MEDS: ISOSORBIDE MONONITRATE ER 60 MG TABLET PO SCH (09:05)
[2018-08-01] MEDS: AMLODIPINE 5 MG TABLET PO SCH ×2 (09:06→23:30)
[2018-08-01] MEDS: RANOLAZINE 500 MG TAB.ER.12H PO SCH ×3 (09:06→23:52)
[2018-08-01] MEDS: ASPIRIN 81 MG TABLET EC PO SCH (09:06)
[2018-08-01] MEDS: CALCIUM/VITAMIN D3 250-125 TABLET PO SCH (09:06)
[2018-08-01] MEDS: FERROUS SULFATE 325 MG TABLET PO SCH (09:07)
[2018-08-01] MEDS: MAGNESIUM OXIDE 400 MG TABLET PO SCH (09:07)
[2018-08-01] MEDS: METOPROLOL TARTRATE 25 MG TABLET PO SCH ×2 (09:07→22:21)
[2018-08-01] MEDS: SODIUM CHLORIDE FLUSH 10ML SYR IVF SCH ×2 (09:08→21:50)
[2018-08-01] MEDS: INSULIN GLARGINE 100 UNITS/ML, PEN SQ-INSULIN SCH ×2 (09:20→23:48)
[2018-08-01] MEDS ORDERED: CALCIUM CARBONATE 500 MG TAB.CHEW PO PRN (21:00)
[2018-08-01] MEDS: NITROGLYCERIN 0.4 MG BOTTLE (25 TABS) SL PRN ×3 (21:39→21:52)
[2018-08-01] MEDS: morphine SULFATE 10 MG/ML, 1ML IVPush PRN ×4 (22:15→23:36)
[2018-08-01] MEDS: ATORVASTATIN 40 MG TABLET PO SCH (23:30)
[2018-08-01] MEDS: ROPINIROLE 1MG TABLET PO SCH (23:30)
[2018-08-01] MEDS: AMITRIPTYLINE 25 MG TABLET PO SCH (23:30)
[2018-08-02 01:22] VITALS: BP 124/78
[2018-08-02 05:12] LABS: MEAN CORPUSCULAR HEMOGLOBIN 30.1 pg (27.0-34.8); MEAN CORPUSCULAR HGB CONC 33.3 g/dL (32.4-35.8); MEAN CORPUSCULAR VOLUME 90.4 fL (80-100); MEAN PLATELET VOLUME 11.9 fL (7.4-10.4); PLATELET COUNT 232 x10^3/uL (130-400); RED BLOOD COUNT 2.94 x10^6/uL (3.82-5.3); RED CELL DISTRIBUTION WIDTH 13.6 % (9.6-15.2)
[2018-08-02 05:20] LABS: ANION GAP 9 mmol/L (5-15); CALCIUM 8.8 mg/dL (8.5-10.1); CHLORIDE 103 mmol/L (98-107); CREATININE 1.48 mg/dL (0.55-1.02)
[2018-08-02] MEDS: DOCUSATE 100 MG CAPSULE PO PRN (05:56)
[2018-08-02] MEDS: NITROGLYCERIN OINT 2%, 1GM TP SCH (06:01)
[2018-08-02 06:30] LABS: MD YES
[2018-08-02 06:33] LABS: BAND#(MANUAL) 0.66 x10^3/uL; BANDS%(MANUAL) 3 % (0-7); EOS#(MANUAL) 0.44 x10^3/uL (0.0-0.4); EOS% (MANUAL) 2 % (1-7); LYMPH#(MANUAL) 1.11 x10^3/uL (1-3.4); LYMPHS% (MANUAL) 5 % (22-44); MONOS#(MANUAL) 2.21 x10^3/uL (0.3-2.7); MONOS% (MANUAL) 10 % (2-9); SEG#(MANUAL) 17.68 x10^3/uL (1.8-6.8); SEGS% (MANUAL) 80 % (42-75)
[2018-08-02 06:34] LABS: ANISOCYTOSIS 1+; POLYCHROMASIA 1+
[2018-08-02 06:35] LABS: <PLATELET ESTIMATE> ADEQUATE; HYPOCHROMIA 1+; LARGE PLATELETS 1+
[2018-08-02] MEDS: HEPARIN 25,000 UNITS/500ML PMX 500 ML IV PRN (06:37)
[2018-08-02] MEDS: INSULIN LISPRO 100 UNITS/ML, PEN SQ-INSULIN SCH ×4 (07:00→21:27)
[2018-08-02 07:58] VITALS: BP 84/64
[2018-08-02 08:15] VITALS: BP 90/69
[2018-08-02] MEDS ORDERED: VANCOMYCIN PER PHARMACY MC PRN (08:30)
[2018-08-02] MEDS ORDERED: CEFTRIAXONE 1,000 MG IM ONE (08:30)
[2018-08-02] MEDS ORDERED: CEFTRIAXONE PMX 1GM/50ML 50 ML IV ONE (08:30)
[2018-08-02] MEDS ORDERED: SODIUM CHLORIDE 0.9%, 500ML IVBOLUS ONE (08:30)
[2018-08-02] MEDS ORDERED: VANCOMYCIN 0 MG in SODIUM CHLORIDE 0.9% 100 ML IV SCH (08:30)
[2018-08-02] MEDS: OMEPRAZOLE 20 MG CAPSULE.DR PO SCH (08:38)
[2018-08-02 08:45] VITALS: BP 92/56
[2018-08-02] MEDS ORDERED: PIPERACILLIN-TAZO-DEXTROSE,ISO 100 ML IV ONE (09:00)
[2018-08-02] MEDS ORDERED: PHARMACY INSTRUCTION MC SCH (09:00)
[2018-08-02] MEDS: AMLODIPINE 5 MG TABLET PO SCH ×2 (09:06→21:00)
[2018-08-02] MEDS: MAGNESIUM OXIDE 400 MG TABLET PO SCH (09:06)
[2018-08-02] MEDS: MULTIVITAMIN 1 TABLET PO SCH (09:06)
[2018-08-02] MEDS: PREGABALIN 100 MG CAPSULE PO SCH ×3 (09:06→21:00)
[2018-08-02] MEDS: METOPROLOL TARTRATE 25 MG TABLET PO SCH (09:06)
[2018-08-02] MEDS: CALCIUM/VITAMIN D3 250-125 TABLET PO SCH (09:06)
[2018-08-02] MEDS: ISOSORBIDE MONONITRATE ER 60 MG TABLET PO SCH (09:06)
[2018-08-02] MEDS: RANOLAZINE 500 MG TAB.ER.12H PO SCH ×2 (09:07→21:00)
[2018-08-02] MEDS: FERROUS SULFATE 325 MG TABLET PO SCH (09:07)
[2018-08-02] MEDS: SODIUM CHLORIDE FLUSH 10ML SYR IVF SCH ×2 (09:07→20:59)
[2018-08-02] MEDS: ASPIRIN 81 MG TABLET EC PO SCH (09:07)
[2018-08-02 09:57] LABS: ALANINE AMINOTRANSFERASE 126 U/L (12-78); ANION GAP 9 mmol/L (5-15); CALCIUM 8.5 mg/dL (8.5-10.1); CHLORIDE 102 mmol/L (98-107); CREATININE 2.02 mg/dL (0.55-1.02)
[2018-08-02 10:00] LABS: ALKALINE PHOSPHATASE 209 U/L (45-117); BILIRUBIN,TOTAL 1.2 mg/dL (0.2-1.0); TOTAL PROTEIN 7.4 g/dL (6.4-8.2)
[2018-08-02] MEDS ORDERED: PIPERACILLIN/TAZO/PMX 3.375GM 50 ML IV SCH (10:00)
[2018-08-02] MEDS ORDERED: LINEZOLID PMX 600MG/300ML 300 ML IV SCH (10:00)
[2018-08-02] MEDS ORDERED: AMPICILLIN/SULBACTAM 3 GM in SODIUM CHLORIDE 0.9% 100 ML IV SCH (10:00)
[2018-08-02] MEDS ORDERED: DOPAMINE/D5W PMX 250 ML IV PRN (11:00)
[2018-08-02] MEDS ORDERED: LIDOCAINE-MPF 1%, 5ML ONE (11:48)
[2018-08-02] MEDS: INSULIN GLARGINE 100 UNITS/ML, PEN SQ-INSULIN SCH ×2 (14:53→21:00)
[2018-08-02] MEDS: AMPICILLIN/SULBACTAM 3 GM in SODIUM CHLORIDE 0.9% 100 ML IV SCH (14:54)
[2018-08-02] MEDS ORDERED: NOREPINEPHRINE 4 MG in SODIUM CHLORIDE 0.9% 246 ML IV PRN (15:00)
[2018-08-02 16:30] LABS: MICROSCOPIC NOT IND
[2018-08-02] MEDS: DOPAMINE/D5W PMX 250 ML IV PRN (18:11)
[2018-08-02] MEDS: SODIUM CHLORIDE 0.9% 1,000 ML IV SCH (20:58)
[2018-08-02] MEDS: ATORVASTATIN 40 MG TABLET PO SCH (21:00)
[2018-08-02] MEDS: AMITRIPTYLINE 25 MG TABLET PO SCH (21:00)
[2018-08-02] MEDS: ROPINIROLE 1MG TABLET PO SCH (21:00)
[2018-08-03] MEDS: AMPICILLIN/SULBACTAM 3 GM in SODIUM CHLORIDE 0.9% 100 ML IV SCH ×2 (03:11→17:03)
[2018-08-03] MEDS: SODIUM CHLORIDE 0.9% 1,000 ML IV SCH (03:12)
[2018-08-03 04:39] LABS: ALBUMIN 2.6 g/dL (3.4-5.0); ANION GAP 14 mmol/L (5-15); CALCIUM 8.1 mg/dL (8.5-10.1); CHLORIDE 105 mmol/L (98-107)
[2018-08-03 04:46] LABS: MD YES; MEAN CORPUSCULAR HEMOGLOBIN 29.4 pg (27.0-34.8); MEAN CORPUSCULAR HGB CONC 32.8 g/dL (32.4-35.8); MEAN CORPUSCULAR VOLUME 89.5 fL (80-100); MEAN PLATELET VOLUME 12.4 fL (7.4-10.4); PLATELET COUNT 248 x10^3/uL (130-400); RED BLOOD COUNT 2.85 x10^6/uL (3.82-5.3); RED CELL DISTRIBUTION WIDTH 13.4 % (9.6-15.2)
[2018-08-03 04:47] LABS: BAND#(MANUAL) 0.63 x10^3/uL; BANDS%(MANUAL) 3 % (0-7); LYMPH#(MANUAL) 1.25 x10^3/uL (1-3.4); LYMPHS% (MANUAL) 6 % (22-44); MONOS#(MANUAL) 0.84 x10^3/uL (0.3-2.7); MONOS% (MANUAL) 4 % (2-9); SEG#(MANUAL) 18.18 x10^3/uL (1.8-6.8); SEGS% (MANUAL) 87 % (42-75)
[2018-08-03 04:48] LABS: <PLATELET ESTIMATE> ADEQUATE; ANISOCYTOSIS 1+; LARGE PLATELETS 1+; POLYCHROMASIA 1+
[2018-08-03 04:56] LABS: ALANINE AMINOTRANSFERASE 3540 U/L (12-78); ALKALINE PHOSPHATASE 180 U/L (45-117); BILIRUBIN,TOTAL 0.8 mg/dL (0.2-1.0); CREATININE 2.54 mg/dL (0.55-1.02); TOTAL PROTEIN 6.7 g/dL (6.4-8.2)
[2018-08-03] MEDS: GUAIFENESIN/COD200MG-20MG/10ML LIQUID PO PRN (05:37)
[2018-08-03] MEDS: AMLODIPINE 5 MG TABLET PO SCH ×2 (09:01→21:00)
[2018-08-03] MEDS: CALCIUM/VITAMIN D3 250-125 TABLET PO SCH (09:02)
[2018-08-03] MEDS: ISOSORBIDE MONONITRATE ER 60 MG TABLET PO SCH (09:02)
[2018-08-03] MEDS: RANOLAZINE 500 MG TAB.ER.12H PO SCH ×2 (09:03→21:07)
[2018-08-03] MEDS: PREGABALIN 100 MG CAPSULE PO SCH ×2 (09:03→21:08)
[2018-08-03] MEDS: MAGNESIUM OXIDE 400 MG TABLET PO SCH (09:03)
[2018-08-03] MEDS: OMEPRAZOLE 20 MG CAPSULE.DR PO SCH (09:04)
[2018-08-03] MEDS: MULTIVITAMIN 1 TABLET PO SCH (09:04)
[2018-08-03] MEDS: FERROUS SULFATE 325 MG TABLET PO SCH (09:04)
[2018-08-03] MEDS: ASPIRIN 81 MG TABLET EC PO SCH (09:04)
[2018-08-03] MEDS: INSULIN LISPRO 100 UNITS/ML, PEN SQ-INSULIN SCH ×4 (09:06→21:11)
[2018-08-03] MEDS: INSULIN GLARGINE 100 UNITS/ML, PEN SQ-INSULIN SCH ×2 (09:09→21:17)
[2018-08-03] MEDS: SODIUM CHLORIDE FLUSH 10ML SYR IVF SCH ×2 (09:10→21:08)
[2018-08-03] MEDS: SODIUM BICARB 8.4%,50ML SYR. 50 MEQ in SODIUM CHLORIDE 0.45% 1,000 ML IV SCH ×2 (09:17→18:07)
[2018-08-03] MEDS: DOCUSATE 100 MG CAPSULE PO PRN (09:23)
[2018-08-03] MEDS: ROPINIROLE 1MG TABLET PO SCH (21:08)
[2018-08-03] MEDS: AMITRIPTYLINE 25 MG TABLET PO SCH (21:08)
[2018-08-03] MEDS ORDERED: FUROSEMIDE 20 MG/2 ML ONE (21:18)
[2018-08-03] MEDS ORDERED: FUROSEMIDE 20 MG/2 ML IV ONE (21:30)
[2018-08-04] MEDS: SODIUM BICARB 8.4%,50ML SYR. 50 MEQ in SODIUM CHLORIDE 0.45% 1,000 ML IV SCH ×3 (02:36→19:12)
[2018-08-04] MEDS: AMPICILLIN/SULBACTAM 3 GM in SODIUM CHLORIDE 0.9% 100 ML IV SCH ×2 (03:53→15:46)
[2018-08-04 04:24] LABS: MEAN CORPUSCULAR HEMOGLOBIN 29.9 pg (27.0-34.8); MEAN CORPUSCULAR HGB CONC 33.5 g/dL (32.4-35.8); MEAN CORPUSCULAR VOLUME 89.3 fL (80-100); MEAN PLATELET VOLUME 12.4 fL (7.4-10.4); PLATELET COUNT 226 x10^3/uL (130-400); RED BLOOD COUNT 2.69 x10^6/uL (3.82-5.3); RED CELL DISTRIBUTION WIDTH 13.5 % (9.6-15.2)
[2018-08-04 04:36] LABS: ALBUMIN 2.5 g/dL (3.4-5.0); ANION GAP 10 mmol/L (5-15); CALCIUM 8.1 mg/dL (8.5-10.1); CHLORIDE 103 mmol/L (98-107); CREATININE 2.19 mg/dL (0.55-1.02)
[2018-08-04 04:44] LABS: ALANINE AMINOTRANSFERASE 2459 U/L (12-78); ALKALINE PHOSPHATASE 205 U/L (45-117); TOTAL PROTEIN 6.3 g/dL (6.4-8.2)
[2018-08-04 04:54] LABS: BASOPHILS # (AUTO) 0.12 x10^3/uL (0-0.1); BASOPHILS % (AUTO) 1 % (0-1); EOSINOPHILS # (AUTO) 0.04 x10^3/uL (0-0.4); EOSINOPHILS % (AUTO) 0 % (1-7); LYMPHOCYTES # (AUTO) 1.31 x10^3/uL (1-3.4); LYMPHOCYTES % (AUTO) 7 % (22-44); MD SCAN; MONOCYTES # (AUTO) 1.74 x10^3/uL (0.2-0.8); MONOCYTES % (AUTO) 9 % (2-9); NEUTROPHILS # (AUTO) 15.88 x10^3/uL (1.8-6.8); NEUTROPHILS % (AUTO) 83 % (42-75)
[2018-08-04] MEDS: INSULIN LISPRO 100 UNITS/ML, PEN SQ-INSULIN SCH ×4 (09:32→21:23)
[2018-08-04] MEDS: ACETAMINOPHEN 500 MG TABLET PO PRN (09:32)
[2018-08-04] MEDS: ASPIRIN 81 MG TABLET EC PO SCH (09:32)
[2018-08-04] MEDS: ISOSORBIDE MONONITRATE ER 60 MG TABLET PO SCH (09:33)
[2018-08-04] MEDS: OMEPRAZOLE 20 MG CAPSULE.DR PO SCH (09:34)
[2018-08-04] MEDS: RANOLAZINE 500 MG TAB.ER.12H PO SCH ×2 (09:34→21:02)
[2018-08-04] MEDS: PREGABALIN 100 MG CAPSULE PO SCH ×2 (09:35→21:02)
[2018-08-04] MEDS: AMLODIPINE 5 MG TABLET PO SCH ×2 (09:36→21:07)
[2018-08-04] MEDS: FERROUS SULFATE 325 MG TABLET PO SCH (09:37)
[2018-08-04] MEDS: CALCIUM/VITAMIN D3 250-125 TABLET PO SCH (09:37)
[2018-08-04] MEDS: MAGNESIUM OXIDE 400 MG TABLET PO SCH (09:37)
[2018-08-04] MEDS: MULTIVITAMIN 1 TABLET PO SCH (09:37)
[2018-08-04] MEDS: INSULIN GLARGINE 100 UNITS/ML, PEN SQ-INSULIN SCH ×2 (09:52→21:21)
[2018-08-04] MEDS: SODIUM CHLORIDE FLUSH 10ML SYR IVF SCH ×2 (09:53→21:07)
[2018-08-04] MEDS ORDERED: ATROPINE SYRINGE 0.1 MG/ML, 10ML IVPush ONE (12:15)
[2018-08-04] MEDS ORDERED: ATROPINE SYRINGE 0.1 MG/ML, 10ML ONE (12:21)
[2018-08-04] MEDS ORDERED: TICAGRELOR 90 MG TABLET ONE (12:25)
[2018-08-04] MEDS ORDERED: FENTANYL PF 100 MCG/2ML ONE (12:25)
[2018-08-04] MEDS ORDERED: MIDAZOLAM 1 MG/ML, 5ML ONE (12:25)
[2018-08-04] MEDS ORDERED: VERAPAMIL 2.5 MG/ML, 2ML ONE (12:25)
[2018-08-04] MEDS ORDERED: BIVALIRUDIN 250 MG ONE ×3 (12:25→15:46)
[2018-08-04] MEDS ORDERED: LIDOCAINE-MPF 1%, 5ML ONE (12:26)
[2018-08-04] MEDS ORDERED: PHENYLEPHRINE 10 MG/ML ONE (12:26)
[2018-08-04] MEDS ORDERED: FUROSEMIDE 40 MG/4 ML IV ONE (15:30)
[2018-08-04] MEDS: SODIUM CHLORIDE 0.9% 1,000 ML IV SCH ×2 (15:58→23:52)
[2018-08-04] MEDS ORDERED: TICAGRELOR 90 MG TABLET PO STA (16:10)
[2018-08-04] MEDS ORDERED: MAGNESIUM CITRATE 300ML ORAL SOL PO PRN (18:30)
[2018-08-04] MEDS: TICAGRELOR 90 MG TABLET PO SCH (21:02)
[2018-08-04] MEDS: AMITRIPTYLINE 25 MG TABLET PO SCH (21:06)
[2018-08-04] MEDS: ROPINIROLE 1MG TABLET PO SCH (21:07)
[2018-08-04] MEDS: DOCUSATE 100 MG CAPSULE PO PRN (21:15)
[2018-08-04] MEDS: DOPAMINE/D5W PMX 250 ML IV PRN ×2 (22:38)
[2018-08-05] MEDS: AMPICILLIN/SULBACTAM 3 GM in SODIUM CHLORIDE 0.9% 100 ML IV SCH ×3 (03:28→23:41)
[2018-08-05] MEDS: SODIUM BICARB 8.4%,50ML SYR. 50 MEQ in SODIUM CHLORIDE 0.45% 1,000 ML IV SCH (03:36)
[2018-08-05 05:09] LABS: MEAN CORPUSCULAR HEMOGLOBIN 29.9 pg (27.0-34.8); MEAN CORPUSCULAR HGB CONC 33.2 g/dL (32.4-35.8); MEAN CORPUSCULAR VOLUME 90.2 fL (80-100); RED BLOOD COUNT 2.58 x10^6/uL (3.82-5.3); RED CELL DISTRIBUTION WIDTH 13.7 % (9.6-15.2)
[2018-08-05 05:15] LABS: ALBUMIN 2.6 g/dL (3.4-5.0); ANION GAP 9 mmol/L (5-15); CHLORIDE 106 mmol/L (98-107); CREATININE 1.81 mg/dL (0.55-1.02)
[2018-08-05 05:25] LABS: ALANINE AMINOTRANSFERASE 2021 U/L (12-78); ALKALINE PHOSPHATASE 263 U/L (45-117); BILIRUBIN,TOTAL 0.9 mg/dL (0.2-1.0); TOTAL PROTEIN 6.2 g/dL (6.4-8.2)
[2018-08-05 05:29] LABS: MD YES
[2018-08-05 05:30] LABS: ANISOCYTOSIS 1+; BAND#(MANUAL) 0.34 x10^3/uL; BANDS%(MANUAL) 2 % (0-7); EOS#(MANUAL) 0.17 x10^3/uL (0.0-0.4); EOS% (MANUAL) 1 % (1-7); HYPOCHROMIA 1+; LYMPH#(MANUAL) 2.04 x10^3/uL (1-3.4); LYMPHS% (MANUAL) 12 % (22-44); METAMYELOCYTES# (MANUAL) 0.34 x10^3/uL (0-0); METAMYELOCYTES% (MANUAL) 2 % (0-1); MONOS#(MANUAL) 2.72 x10^3/uL (0.3-2.7); MONOS% (MANUAL) 16 % (2-9); POLYCHROMASIA 1+; SEG#(MANUAL) 11.39 x10^3/uL (1.8-6.8); SEGS% (MANUAL) 67 % (42-75)
[2018-08-05 05:31] LABS: <PLATELET ESTIMATE> ADEQUATE; LARGE PLATELETS 1+
[2018-08-05 05:32] LABS: MEAN PLATELET VOLUME 11.9 fL (7.4-10.4); PLATELET COUNT 236 x10^3/uL (130-400)
[2018-08-05] MEDS: INSULIN LISPRO 100 UNITS/ML, PEN SQ-INSULIN SCH ×4 (07:00→21:00)
[2018-08-05] MEDS: FERROUS SULFATE 325 MG TABLET PO SCH (09:27)
[2018-08-05] MEDS: AMLODIPINE 5 MG TABLET PO SCH ×2 (09:27→21:26)
[2018-08-05] MEDS: OMEPRAZOLE 20 MG CAPSULE.DR PO SCH (09:27)
[2018-08-05] MEDS: MAGNESIUM OXIDE 400 MG TABLET PO SCH (09:27)
[2018-08-05] MEDS: RANOLAZINE 500 MG TAB.ER.12H PO SCH ×2 (09:27→21:26)
[2018-08-05] MEDS: ISOSORBIDE MONONITRATE ER 60 MG TABLET PO SCH (09:28)
[2018-08-05] MEDS: ASPIRIN 81 MG TABLET EC PO SCH (09:28)
[2018-08-05] MEDS: MULTIVITAMIN 1 TABLET PO SCH (09:28)
[2018-08-05] MEDS: PREGABALIN 100 MG CAPSULE PO SCH ×2 (09:28→21:25)
[2018-08-05] MEDS: CALCIUM/VITAMIN D3 250-125 TABLET PO SCH (09:28)
[2018-08-05] MEDS: TICAGRELOR 90 MG TABLET PO SCH ×2 (09:28→21:26)
[2018-08-05] MEDS ORDERED: FUROSEMIDE 40 MG/4 ML IV ONE (09:30)
[2018-08-05] MEDS: SODIUM CHLORIDE FLUSH 10ML SYR IVF SCH ×2 (09:30→21:25)
[2018-08-05] MEDS: INSULIN GLARGINE 100 UNITS/ML, PEN SQ-INSULIN SCH ×2 (09:31→21:36)
[2018-08-05] MEDS: SODIUM CHLORIDE 0.9% 1,000 ML IV SCH (09:43)
[2018-08-05] MEDS: FUROSEMIDE 40 MG/4 ML IV SCH ×2 (09:43→17:08)
[2018-08-05] MEDS: ACETAMINOPHEN 500 MG TABLET PO PRN (09:48)
[2018-08-05] MEDS ORDERED: SODIUM CHLORIDE 0.9% 1,000 ML IV SCH (11:30)
[2018-08-05 12:28] VITALS: BP 108/50
[2018-08-05 12:45] VITALS: BP 108/56
[2018-08-05] MEDS ORDERED: ZIPRASIDONE 20 MG INJ IM ONE (13:00)
[2018-08-05 14:59] VITALS: BP 126/49
[2018-08-05 15:00] VITALS: BP 125/49
[2018-08-05] MEDS: AMITRIPTYLINE 25 MG TABLET PO SCH (21:26)
[2018-08-05] MEDS: ROPINIROLE 1MG TABLET PO SCH (21:26)
[2018-08-06 03:39] LABS: MEAN CORPUSCULAR HEMOGLOBIN 29.1 pg (27.0-34.8); MEAN CORPUSCULAR HGB CONC 32.9 g/dL (32.4-35.8); MEAN CORPUSCULAR VOLUME 88.7 fL (80-100); MEAN PLATELET VOLUME 11.4 fL (7.4-10.4); PLATELET COUNT 249 x10^3/uL (130-400); RED BLOOD COUNT 2.97 x10^6/uL (3.82-5.3); RED CELL DISTRIBUTION WIDTH 14.7 % (9.6-15.2)
[2018-08-06 03:40] LABS: ALBUMIN 2.6 g/dL (3.4-5.0); ANION GAP 9 mmol/L (5-15); CALCIUM 8.2 mg/dL (8.5-10.1); CHLORIDE 108 mmol/L (98-107); CREATININE 1.64 mg/dL (0.55-1.02)
[2018-08-06 03:47] LABS: ALANINE AMINOTRANSFERASE 1391 U/L (12-78); ALKALINE PHOSPHATASE 292 U/L (45-117); BILIRUBIN,TOTAL 1.4 mg/dL (0.2-1.0); TOTAL PROTEIN 6.3 g/dL (6.4-8.2)
[2018-08-06 04:00] LABS: MD YES
[2018-08-06 04:10] LABS: BAND#(MANUAL) 0.36 x10^3/uL; BANDS%(MANUAL) 2 % (0-7); EOS#(MANUAL) 0.53 x10^3/uL (0.0-0.4); EOS% (MANUAL) 3 % (1-7); LYMPH#(MANUAL) 2.85 x10^3/uL (1-3.4); LYMPHS% (MANUAL) 16 % (22-44); METAMYELOCYTES# (MANUAL) 0.18 x10^3/uL (0-0); METAMYELOCYTES% (MANUAL) 1 % (0-1); MONOS#(MANUAL) 0.89 x10^3/uL (0.3-2.7); MONOS% (MANUAL) 5 % (2-9); SEGS% (MANUAL) 73 % (42-75)
[2018-08-06 04:11] LABS: <PLATELET ESTIMATE> ADEQUATE; ANISOCYTOSIS 1+; HYPOCHROMIA 1+; LARGE PLATELETS 1+; NRBC % (MANUAL) 11 % (0-1); POLYCHROMASIA 1+
[2018-08-06] MEDS: INSULIN LISPRO 100 UNITS/ML, PEN SQ-INSULIN SCH ×4 (07:00→20:00)
[2018-08-06] MEDS: AMPICILLIN/SULBACTAM 3 GM in SODIUM CHLORIDE 0.9% 100 ML IV SCH ×3 (07:44→23:23)
[2018-08-06] MEDS: INSULIN GLARGINE 100 UNITS/ML, PEN SQ-INSULIN SCH ×2 (09:00→21:00)
[2018-08-06] MEDS: MAGNESIUM OXIDE 400 MG TABLET PO SCH (09:00)
[2018-08-06] MEDS: PREGABALIN 100 MG CAPSULE PO SCH (09:00)
[2018-08-06] MEDS: CALCIUM/VITAMIN D3 250-125 TABLET PO SCH (09:00)
[2018-08-06] MEDS: MULTIVITAMIN 1 TABLET PO SCH (09:00)
[2018-08-06] MEDS: FERROUS SULFATE 325 MG TABLET PO SCH (09:00)
[2018-08-06] MEDS: TICAGRELOR 90 MG TABLET PO SCH (09:00)
[2018-08-06] MEDS: ASPIRIN 81 MG TABLET EC PO SCH (09:00)
[2018-08-06] MEDS: AMLODIPINE 5 MG TABLET PO SCH (09:00)
[2018-08-06] MEDS: FUROSEMIDE 40 MG/4 ML IV SCH ×2 (09:25→17:22)
[2018-08-06] MEDS: SODIUM CHLORIDE FLUSH 10ML SYR IVF SCH ×2 (09:30→21:54)
[2018-08-06] MEDS: ZIPRASIDONE 20 MG INJ IM PRN ×3 (09:36→21:41)
[2018-08-06] MEDS ORDERED: CALCIUM CARBONATE 500 MG TAB.CHEW NG PRN (09:52)
[2018-08-06] MEDS ORDERED: CALCIUM/VITAMIN D3 250-125 TABLET NG SCH (09:53)
[2018-08-06] MEDS ORDERED: FERROUS SULFATE 220 MG/5 ML ORAL SOL NG SCH (09:59)
[2018-08-06] MEDS ORDERED: GUAIFENESIN/COD200MG-20MG/10ML LIQUID NG PRN (10:00)
[2018-08-06] MEDS ORDERED: ACETAMINOPHEN 650 MG/20.3 ML UDC NG PRN (10:00)
[2018-08-06] MEDS ORDERED: MAGNESIUM OXIDE 400 MG TABLET NG SCH (10:01)
[2018-08-06] MEDS ORDERED: MULTIVIT.W/IRON, MINERALS ORAL SOL PO SCH (10:03)
[2018-08-06] MEDS ORDERED: MULTIVIT.W/IRON, MINERALS ORAL SOL NG SCH ×2 (10:04→10:27)
[2018-08-06] MEDS ORDERED: ONDANSETRON ODT 4 MG NG PRN (10:04)
[2018-08-06] MEDS ORDERED: TICAGRELOR 90 MG TABLET NG SCH (10:13)
[2018-08-06] MEDS: DOCUSATE 50 MG/5 ML, 10ML UDC NG PRN (12:10)
[2018-08-06] MEDS: ISOSORBIDE MONONITRATE ER 60 MG TABLET PO SCH (12:11)
[2018-08-06] MEDS: AMLODIPINE 5 MG TABLET NG SCH ×2 (12:11→21:55)
[2018-08-06] MEDS: OMEPRAZOLE 20 MG CAPSULE.DR PO SCH (12:12)
[2018-08-06] MEDS: RANOLAZINE 500 MG TAB.ER.12H PO SCH ×2 (12:12→21:55)
[2018-08-06] MEDS: TICAGRELOR 90 MG TABLET NG SCH ×2 (12:12→21:54)
[2018-08-06] MEDS: PREGABALIN 100 MG CAPSULE NG SCH ×2 (12:13→21:54)
[2018-08-06] MEDS: ASPIRIN 81 MG TABLET CHEW NG SCH (12:13)
[2018-08-06] MEDS: MAGNESIUM OXIDE 400 MG TABLET NG SCH (12:14)
[2018-08-06] MEDS: CALCIUM/VITAMIN D3 250-125 TABLET NG SCH (12:14)
[2018-08-06] MEDS: AMITRIPTYLINE 25 MG TABLET NG SCH (21:54)
[2018-08-06] MEDS: ROPINIROLE 1MG TABLET NG SCH (21:55)
[2018-08-06] MEDS: morphine SULFATE 10 MG/ML, 1ML IVPush PRN (22:40)
[2018-08-07] MEDS: INSULIN LISPRO 100 UNITS/ML, PEN SQ-INSULIN SCH ×6 (04:00→20:57)
[2018-08-07 05:07] LABS: ANION GAP 10 mmol/L (5-15); CALCIUM 8.6 mg/dL (8.5-10.1); CHLORIDE 108 mmol/L (98-107); CREATININE 1.47 mg/dL (0.55-1.02)
[2018-08-07 05:16] LABS: MEAN CORPUSCULAR HEMOGLOBIN 29.3 pg (27.0-34.8); MEAN CORPUSCULAR HGB CONC 33.4 g/dL (32.4-35.8); MEAN CORPUSCULAR VOLUME 87.8 fL (80-100); MEAN PLATELET VOLUME 10.8 fL (7.4-10.4); PLATELET COUNT 253 x10^3/uL (130-400); RED BLOOD COUNT 2.92 x10^6/uL (3.82-5.3); RED CELL DISTRIBUTION WIDTH 14.9 % (9.6-15.2)
[2018-08-07 06:10] LABS: MD YES
[2018-08-07 06:11] LABS: EOS#(MANUAL) 0.44 x10^3/uL (0.0-0.4); EOS% (MANUAL) 3 % (1-7); LYMPH#(MANUAL) 2.21 x10^3/uL (1-3.4); LYMPHS% (MANUAL) 15 % (22-44); MONOS#(MANUAL) 1.32 x10^3/uL (0.3-2.7); MONOS% (MANUAL) 9 % (2-9); NRBC % (MANUAL) 2 % (0-1); SEG#(MANUAL) 10.73 x10^3/uL (1.8-6.8); SEGS% (MANUAL) 73 % (42-75)
[2018-08-07 06:13] LABS: ANISOCYTOSIS 1+; HYPOCHROMIA 1+; POLYCHROMASIA 1+
[2018-08-07 06:14] LABS: <PLATELET ESTIMATE> ADEQUATE; LARGE PLATELETS 1+
[2018-08-07] MEDS: AMPICILLIN/SULBACTAM 3 GM in SODIUM CHLORIDE 0.9% 100 ML IV SCH ×3 (07:29→19:49)
[2018-08-07] MEDS ORDERED: POTASSIUM CHLORIDE 20 MEQ TAB.ER.PRT PO ONE (07:30)
[2018-08-07] MEDS: RANOLAZINE 500 MG TAB.ER.12H PO SCH ×2 (09:27→20:59)
[2018-08-07] MEDS: FUROSEMIDE 40 MG/4 ML IV SCH ×2 (09:27→17:35)
[2018-08-07] MEDS: ISOSORBIDE MONONITRATE ER 60 MG TABLET PO SCH (09:28)
[2018-08-07] MEDS: PREGABALIN 100 MG CAPSULE NG SCH ×2 (09:28→20:59)
[2018-08-07] MEDS: ASPIRIN 81 MG TABLET CHEW NG SCH (09:28)
[2018-08-07] MEDS: FERROUS SULFATE 220 MG/5 ML ORAL SOL NG SCH (09:29)
[2018-08-07] MEDS: OMEPRAZOLE 20 MG CAPSULE.DR PO SCH (09:29)
[2018-08-07] MEDS: AMLODIPINE 5 MG TABLET NG SCH ×2 (09:29→20:59)
[2018-08-07] MEDS: CALCIUM/VITAMIN D3 250-125 TABLET NG SCH (09:29)
[2018-08-07] MEDS: MULTIVIT.W/IRON, MINERALS ORAL SOL NG SCH (09:30)
[2018-08-07] MEDS: TICAGRELOR 90 MG TABLET NG SCH (09:31)
[2018-08-07] MEDS: INSULIN GLARGINE 100 UNITS/ML, PEN SQ-INSULIN SCH ×2 (09:31→21:00)
[2018-08-07] MEDS: SODIUM CHLORIDE FLUSH 10ML SYR IVF SCH ×3 (09:32→21:00)
[2018-08-07] MEDS: MAGNESIUM OXIDE 400 MG TABLET NG SCH (09:45)
[2018-08-07] MEDS ORDERED: CEFAZOLIN PMX 1GM/50ML 50 ML IVPB ONE (14:00)
[2018-08-07] MEDS ORDERED: LIDOCAINE-MPF 1%, 5ML ONE (15:35)
[2018-08-07] MEDS ORDERED: CEFAZOLIN PMX 1GM/50ML 50 ML ONE (15:35)
[2018-08-07] MEDS ORDERED: CEFAZOLIN 1,000 MG ONE (15:35)
[2018-08-07] MEDS ORDERED: FENTANYL PF 100 MCG/2ML ONE (16:00)
[2018-08-07] MEDS ORDERED: PROPOFOL 10 MG/ML, 20ML ONE (16:03)
[2018-08-07] MEDS ORDERED: HOLD MEDICATION MC PRN (17:00)
[2018-08-07] MEDS: AMITRIPTYLINE 25 MG TABLET NG SCH (20:59)
[2018-08-07] MEDS: ROPINIROLE 1MG TABLET NG SCH (20:59)
[2018-08-07] MEDS: ZIPRASIDONE 20 MG INJ IM PRN (21:39)
[2018-08-08] MEDS: INSULIN LISPRO 100 UNITS/ML, PEN SQ-INSULIN SCH ×6 (00:19→22:05)
[2018-08-08] MEDS: AMPICILLIN/SULBACTAM 3 GM in SODIUM CHLORIDE 0.9% 100 ML IV SCH ×4 (02:01→23:33)
[2018-08-08] MEDS: morphine SULFATE 10 MG/ML, 1ML IVPush PRN ×3 (03:59→23:29)
[2018-08-08] MEDS ORDERED: ALBUTEROL SULFATE 2.5 MG/3 ML ONE (04:09)
[2018-08-08] MEDS: MAGNESIUM OXIDE 400 MG TABLET NG SCH (09:23)
[2018-08-08] MEDS: ISOSORBIDE MONONITRATE ER 60 MG TABLET PO SCH (09:23)
[2018-08-08] MEDS: AMLODIPINE 5 MG TABLET NG SCH ×2 (09:23→22:07)
[2018-08-08] MEDS: PREGABALIN 100 MG CAPSULE NG SCH ×2 (09:23→22:07)
[2018-08-08] MEDS: RANOLAZINE 500 MG TAB.ER.12H PO SCH ×2 (09:23→19:31)
[2018-08-08] MEDS: OMEPRAZOLE 20 MG CAPSULE.DR PO SCH (09:23)
[2018-08-08] MEDS: CALCIUM/VITAMIN D3 250-125 TABLET NG SCH (09:23)
[2018-08-08] MEDS: SODIUM CHLORIDE FLUSH 10ML SYR IVF SCH ×4 (09:24→22:08)
[2018-08-08] MEDS: MULTIVIT.W/IRON, MINERALS ORAL SOL NG SCH (09:43)
[2018-08-08] MEDS: FERROUS SULFATE 220 MG/5 ML ORAL SOL NG SCH (09:43)
[2018-08-08] MEDS: FUROSEMIDE 40 MG/4 ML IV SCH ×2 (09:44→17:24)
[2018-08-08] MEDS: INSULIN GLARGINE 100 UNITS/ML, PEN SQ-INSULIN SCH ×2 (09:49→22:05)
[2018-08-08] MEDS ORDERED: AMIODARONE 150 MG in DEXTROSE 5% 100 ML IV ONE (10:00)
[2018-08-08] MEDS ORDERED: FILTER 0.22 MICRON FOR AMIODARONE IV PRN (10:30)
[2018-08-08] MEDS: METOPROLOL TARTRATE 25 MG TABLET PO SCH ×2 (11:23→17:25)
[2018-08-08] MEDS: AMIODARONE 900 MG in DEXTROSE 5% 482 ML IV PRN (11:24)
[2018-08-08 11:27] LABS: ANION GAP 7 mmol/L (5-15); CALCIUM 8.7 mg/dL (8.5-10.1); CHLORIDE 107 mmol/L (98-107); CREATININE 1.45 mg/dL (0.55-1.02)
[2018-08-08 11:36] LABS: MEAN CORPUSCULAR HEMOGLOBIN 29.2 pg (27.0-34.8); MEAN CORPUSCULAR HGB CONC 32.8 g/dL (32.4-35.8); MEAN CORPUSCULAR VOLUME 89.1 fL (80-100); MEAN PLATELET VOLUME 11.3 fL (7.4-10.4); PLATELET COUNT 262 x10^3/uL (130-400); RED BLOOD COUNT 2.82 x10^6/uL (3.82-5.3); RED CELL DISTRIBUTION WIDTH 15.4 % (9.6-15.2)
[2018-08-08 12:14] LABS: MD YES
[2018-08-08 12:15] LABS: <PLATELET ESTIMATE> ADEQUATE; BAND#(MANUAL) 0.42 x10^3/uL; BANDS%(MANUAL) 3 % (0-7); EOS#(MANUAL) 0.28 x10^3/uL (0.0-0.4); EOS% (MANUAL) 2 % (1-7); LYMPH#(MANUAL) 1.41 x10^3/uL (1-3.4); LYMPHS% (MANUAL) 10 % (22-44); MONOS#(MANUAL) 0.99 x10^3/uL (0.3-2.7); MONOS% (MANUAL) 7 % (2-9); NRBC % (MANUAL) 1 % (0-1); SEGS% (MANUAL) 78 % (42-75)
[2018-08-08 12:16] LABS: ANISOCYTOSIS 1+; GIANT PLATELETS 1+; LARGE PLATELETS 1+; POLYCHROMASIA 1+
[2018-08-08] MEDS: ROPINIROLE 1MG TABLET NG SCH (22:07)
[2018-08-08] MEDS: AMITRIPTYLINE 25 MG TABLET NG SCH (22:07)
[2018-08-08] MEDS: TICAGRELOR 90 MG TABLET NG SCH (22:07)
[2018-08-09] MEDS: INSULIN LISPRO 100 UNITS/ML, PEN SQ-INSULIN SCH ×6 (02:10→21:53)
[2018-08-09] MEDS: morphine SULFATE 10 MG/ML, 1ML IVPush PRN (04:47)
[2018-08-09] MEDS: AMPICILLIN/SULBACTAM 3 GM in SODIUM CHLORIDE 0.9% 100 ML IV SCH ×2 (05:14→10:54)
[2018-08-09] MEDS: METOPROLOL TARTRATE 25 MG TABLET PO SCH ×2 (05:22→17:30)
[2018-08-09 05:32] LABS: ANION GAP 8 mmol/L (5-15); CALCIUM 8.8 mg/dL (8.5-10.1); CHLORIDE 106 mmol/L (98-107)
[2018-08-09 05:34] LABS: CREATININE 1.51 mg/dL (0.55-1.02)
[2018-08-09 05:39] LABS: MEAN CORPUSCULAR HEMOGLOBIN 28.4 pg (27.0-34.8); MEAN CORPUSCULAR HGB CONC 31.9 g/dL (32.4-35.8); MEAN PLATELET VOLUME 10.9 fL (7.4-10.4); PLATELET COUNT 276 x10^3/uL (130-400); RED BLOOD COUNT 2.92 x10^6/uL (3.82-5.3); RED CELL DISTRIBUTION WIDTH 15.6 % (9.6-15.2)
[2018-08-09 05:58] LABS: BASOPHILS # (AUTO) 0.16 x10^3/uL (0-0.1); BASOPHILS % (AUTO) 1 % (0-1); EOSINOPHILS # (AUTO) 0.24 x10^3/uL (0-0.4); EOSINOPHILS % (AUTO) 1 % (1-7); LYMPHOCYTES # (AUTO) 2.35 x10^3/uL (1-3.4); LYMPHOCYTES % (AUTO) 13 % (22-44); MD SCAN; MONOCYTES # (AUTO) 2.45 x10^3/uL (0.2-0.8); MONOCYTES % (AUTO) 14 % (2-9); NEUTROPHILS % (AUTO) 71 % (42-75)
[2018-08-09] MEDS: FUROSEMIDE 40 MG/4 ML IV SCH ×2 (08:09→17:28)
[2018-08-09] MEDS: OMEPRAZOLE 20 MG CAPSULE.DR PO SCH (08:09)
[2018-08-09] MEDS: SODIUM CHLORIDE FLUSH 10ML SYR IVF SCH ×4 (08:11→21:22)
[2018-08-09] MEDS: RANOLAZINE 500 MG TAB.ER.12H PO SCH (09:00)
[2018-08-09] MEDS: PREGABALIN 100 MG CAPSULE NG SCH ×2 (09:35→21:23)
[2018-08-09] MEDS: MAGNESIUM OXIDE 400 MG TABLET NG SCH (09:36)
[2018-08-09] MEDS: ISOSORBIDE MONONITRATE ER 60 MG TABLET PO SCH (09:36)
[2018-08-09] MEDS: ASPIRIN 81 MG TABLET CHEW NG SCH (09:36)
[2018-08-09] MEDS: CALCIUM/VITAMIN D3 250-125 TABLET NG SCH (09:36)
[2018-08-09] MEDS: FERROUS SULFATE 220 MG/5 ML ORAL SOL NG SCH (09:37)
[2018-08-09] MEDS: AMLODIPINE 5 MG TABLET NG SCH ×2 (09:37→21:23)
[2018-08-09] MEDS: MULTIVIT.W/IRON, MINERALS ORAL SOL NG SCH (09:37)
[2018-08-09] MEDS: TICAGRELOR 90 MG TABLET NG SCH ×2 (09:41→21:23)
[2018-08-09] MEDS ORDERED: HALOPERIDOL 5 MG/ML IV PRN (10:00)
[2018-08-09] MEDS ORDERED: OXYcodone 5 MG/5 ML ORAL.SOL UDC NG PRN (10:00)
[2018-08-09] MEDS: INSULIN GLARGINE 100 UNITS/ML, PEN SQ-INSULIN SCH ×2 (10:43→21:51)
[2018-08-09] MEDS: AMIODARONE 900 MG in DEXTROSE 5% 482 ML IV PRN (12:25)
[2018-08-09] MEDS: ISOSORBIDE DINITRATE 10 MG TABLET PO SCH ×2 (17:28→21:23)
[2018-08-09] MEDS: ROPINIROLE 1MG TABLET NG SCH (21:23)
[2018-08-10] MEDS: INSULIN LISPRO 100 UNITS/ML, PEN SQ-INSULIN SCH ×6 (02:15→21:31)
[2018-08-10 04:48] LABS: MEAN CORPUSCULAR HEMOGLOBIN 28.6 pg (27.0-34.8); MEAN CORPUSCULAR HGB CONC 32.3 g/dL (32.4-35.8); MEAN CORPUSCULAR VOLUME 88.6 fL (80-100); MEAN PLATELET VOLUME 10.9 fL (7.4-10.4); PLATELET COUNT 235 x10^3/uL (130-400); RED BLOOD COUNT 2.67 x10^6/uL (3.82-5.3); RED CELL DISTRIBUTION WIDTH 15.5 % (9.6-15.2)
[2018-08-10 04:59] LABS: CHLORIDE 104 mmol/L (98-107)
[2018-08-10 05:09] LABS: ALANINE AMINOTRANSFERASE 372 U/L (12-78); ALBUMIN 2.8 g/dL (3.4-5.0); ALKALINE PHOSPHATASE 215 U/L (45-117); ANION GAP 7 mmol/L (5-15); BILIRUBIN,TOTAL 1.1 mg/dL (0.2-1.0); CALCIUM 8.8 mg/dL (8.5-10.1); CREATININE 1.76 mg/dL (0.55-1.02); TOTAL PROTEIN 6.8 g/dL (6.4-8.2)
[2018-08-10] MEDS: METOPROLOL TARTRATE 25 MG TABLET PO SCH ×2 (05:38→18:40)
[2018-08-10 05:50] LABS: MD YES
[2018-08-10 05:51] LABS: BANDS%(MANUAL) 1 % (0-7); LYMPH#(MANUAL) 1.19 x10^3/uL (1-3.4); LYMPHS% (MANUAL) 6 % (22-44); MONOS#(MANUAL) 1.59 x10^3/uL (0.3-2.7); MONOS% (MANUAL) 8 % (2-9); NRBC % (MANUAL) 1 % (0-1); SEG#(MANUAL) 16.92 x10^3/uL (1.8-6.8); SEGS% (MANUAL) 85 % (42-75)
[2018-08-10 05:52] LABS: <PLATELET ESTIMATE> ADEQUATE; ANISOCYTOSIS 1+; HYPOCHROMIA 1+; LARGE PLATELETS 1+; POLYCHROMASIA 1+
[2018-08-10] MEDS: PREGABALIN 100 MG CAPSULE NG SCH ×2 (07:59→21:16)
[2018-08-10] MEDS: OMEPRAZOLE 20 MG CAPSULE.DR PO SCH (07:59)
[2018-08-10] MEDS: FUROSEMIDE 40 MG/4 ML IV SCH (07:59)
[2018-08-10] MEDS: AMLODIPINE 5 MG TABLET NG SCH ×2 (08:00→21:17)
[2018-08-10] MEDS: MAGNESIUM OXIDE 400 MG TABLET NG SCH (08:00)
[2018-08-10] MEDS: ISOSORBIDE DINITRATE 10 MG TABLET PO SCH ×3 (08:00→21:17)
[2018-08-10] MEDS: CALCIUM/VITAMIN D3 250-125 TABLET NG SCH (08:01)
[2018-08-10] MEDS: TICAGRELOR 90 MG TABLET NG SCH ×2 (08:01→21:16)
[2018-08-10] MEDS: ASPIRIN 81 MG TABLET CHEW NG SCH (08:01)
[2018-08-10] MEDS: SODIUM CHLORIDE FLUSH 10ML SYR IVF SCH ×4 (08:02→21:16)
[2018-08-10] MEDS: MULTIVIT.W/IRON, MINERALS ORAL SOL NG SCH (08:02)
[2018-08-10] MEDS: FERROUS SULFATE 220 MG/5 ML ORAL SOL NG SCH (08:02)
[2018-08-10] MEDS: INSULIN GLARGINE 100 UNITS/ML, PEN SQ-INSULIN SCH ×2 (08:05→21:31)
[2018-08-10] MEDS: DOCUSATE 50 MG/5 ML, 10ML UDC NG PRN (09:43)
[2018-08-10 12:36] LABS: O2 FLOW 6 L/min
[2018-08-10] MEDS ORDERED: HEPARIN 5,000 UNITS/ML, 1ML IV PRN (14:30)
[2018-08-10] MEDS ORDERED: HEPARIN 25,000 UNITS/500ML PMX 500 ML IV PRN ×2 (14:30)
[2018-08-10] MEDS ORDERED: HEPARIN 5,000 UNITS/ML, 1ML IV ONE (14:30)
[2018-08-10 20:34] LABS: OCCULT BLOOD POSITIVE (NEGATIVE)
[2018-08-10] MEDS: ROPINIROLE 1MG TABLET NG SCH (21:17)
[2018-08-11] VITALS (7 sets, daily range): BP systolic 120–160; BP diastolic 50–60
[2018-08-11] MEDS: TICAGRELOR 90 MG TABLET NG SCH (01:36)
[2018-08-11] MEDS: INSULIN LISPRO 100 UNITS/ML, PEN SQ-INSULIN SCH ×3 (01:54→09:11)
[2018-08-11] MEDS: METOPROLOL TARTRATE 25 MG TABLET PO SCH ×2 (05:05→08:21)
[2018-08-11 06:21] LABS: MEAN CORPUSCULAR HEMOGLOBIN 29.6 pg (27.0-34.8); MEAN CORPUSCULAR HGB CONC 33.7 g/dL (32.4-35.8); MEAN CORPUSCULAR VOLUME 87.9 fL (80-100); MEAN PLATELET VOLUME 11.1 fL (7.4-10.4); PLATELET COUNT 237 x10^3/uL (130-400); RED BLOOD COUNT 3.27 x10^6/uL (3.82-5.3); RED CELL DISTRIBUTION WIDTH 15.4 % (9.6-15.2)
[2018-08-11 06:27] LABS: ALANINE AMINOTRANSFERASE 271 U/L (12-78); ALBUMIN 2.7 g/dL (3.4-5.0); ANION GAP 6 mmol/L (5-15); CALCIUM 8.6 mg/dL (8.5-10.1); CHLORIDE 107 mmol/L (98-107)
[2018-08-11 06:30] LABS: ALKALINE PHOSPHATASE 198 U/L (45-117); BILIRUBIN,TOTAL 1.9 mg/dL (0.2-1.0); CREATININE 1.38 mg/dL (0.55-1.02); TOTAL PROTEIN 6.8 g/dL (6.4-8.2)
[2018-08-11 06:44] LABS: MD YES
[2018-08-11 06:45] LABS: LYMPH#(MANUAL) 3.75 x10^3/uL (1-3.4); LYMPHS% (MANUAL) 15 % (22-44); MONOS% (MANUAL) 8 % (2-9); SEG#(MANUAL) 19.25 x10^3/uL (1.8-6.8); SEGS% (MANUAL) 77 % (42-75)
[2018-08-11 06:46] LABS: NRBC % (MANUAL) 3 % (0-1)
[2018-08-11 06:47] LABS: <PLATELET ESTIMATE> ADEQUATE; ANISOCYTOSIS 1+; HYPOCHROMIA 1+; LARGE PLATELETS 1+; POLYCHROMASIA 1+
[2018-08-11] MEDS: ASPIRIN 81 MG TABLET CHEW NG SCH (08:22)
[2018-08-11] MEDS: PREGABALIN 100 MG CAPSULE NG SCH (08:22)
[2018-08-11] MEDS: AMLODIPINE 5 MG TABLET NG SCH (08:22)
[2018-08-11] MEDS: ISOSORBIDE DINITRATE 10 MG TABLET PO SCH (08:22)
[2018-08-11] MEDS: CALCIUM/VITAMIN D3 250-125 TABLET NG SCH (08:23)
[2018-08-11] MEDS: MAGNESIUM OXIDE 400 MG TABLET NG SCH (08:23)
[2018-08-11] MEDS: MULTIVIT.W/IRON, MINERALS ORAL SOL NG SCH (08:46)
[2018-08-11] MEDS: FERROUS SULFATE 220 MG/5 ML ORAL SOL NG SCH (08:47)
[2018-08-11] MEDS: INSULIN GLARGINE 100 UNITS/ML, PEN SQ-INSULIN SCH (08:48)
[2018-08-11] MEDS ORDERED: PANTOPRAZOLE 40 MG IV IVPush SCH (09:00)
[2018-08-11] MEDS ORDERED: FUROSEMIDE 40 MG TABLET PO SCH (09:00)
[2018-08-11] MEDS ORDERED: ROPINIROLE 1MG TABLET PO PRN (12:00)
[2018-08-11] MEDS ORDERED: ATROPINE OPHTH SOLN 1%, 2ML BC PRN (12:00)
[2018-08-11] MEDS: LORazepam 2 MG/ML, 1ML IVPush PRN ×4 (13:08→20:05)
[2018-08-11] MEDS: MORPHINE SULFATE 4 MG/ML, 1ML IVPush PRN ×3 (15:39→18:21)
[2018-08-11] MEDS ORDERED: OXYcodone 5 MG/5 ML ORAL.SOL UDC PO PRN (16:00)
[2018-08-11] MEDS ORDERED: CATHFLO-ALTEPLASE 2 MG/2 ML CATHFLUSH ONE ×2 (18:00)
[2018-08-12] MEDS: MORPHINE SULFATE 4 MG/ML, 1ML IVPush PRN ×5 (00:15→19:37)
[2018-08-12] MEDS: SCOPOLAMINE PATCH, 1.5MG PATCH.TD72 TD SCH (09:53)
[2018-08-12] MEDS: LORazepam 2 MG/ML, 1ML IVPush PRN ×3 (11:03→22:50)
[2018-08-13] MEDS: MORPHINE SULFATE 4 MG/ML, 1ML IVPush PRN ×2 (01:03→06:25)
[2018-08-13] MEDS: LORazepam 2 MG/ML, 1ML IVPush PRN ×2 (04:32→12:47)
[2018-08-13] MEDS: SCOPOLAMINE PATCH, 1.5MG PATCH.TD72 TD SCH (09:55)
[2018-08-13] MEDS ORDERED: SCOPOLAMINE PATCH, 1.5MG PATCH.TD72 TD SCH (11:30)
[2018-08-13 13:01] VITALS: BP 117/67
[2018-08-13] MEDS ORDERED: MORPHINE SULFATE 4 MG/ML, 1ML IVPush PRN ×2 (17:00)
[2018-08-13] MEDS ORDERED: LORazepam 2 MG/ML, 1ML IVPush PRN (17:00)
== END 2018-08-14 11:52 | disposition expired | DRG 853 ==
LOC: ED 15:44 → EDIP 16:42 → OBSVTOIN 16:42 → INTOOBSV 16:42 → 5SO 18:32 → CCU 08-02 08:52 → 3NW 08-11 13:55
PROVIDERS: ADMIT Family Medicine; ATTEND Internal Medicine
PROC: 02WA3MZ Revision of Cardiac Lead in Heart, Percutaneous Approach (ICD-10-PCS; principal; 2018-08-02)
PROC: 02HV33Z Insertion of Infusion Device into Superior Vena Cava, Percutaneous Approach (ICD-10-PCS; 2018-08-02)
PROC: B548ZZA Ultrasonography of Superior Vena Cava, Guidance (ICD-10-PCS; 2018-08-02)
PROC: 4A023N7 Measurement of Cardiac Sampling and Pressure, Left Heart, Percutaneous Approach (ICD-10-PCS; 2018-08-02)
PROC: B2111ZZ Fluoroscopy of Multiple Coronary Arteries using Low Osmolar Contrast (ICD-10-PCS; 2018-08-02)
PROC: B2151ZZ Fluoroscopy of Left Heart using Low Osmolar Contrast (ICD-10-PCS; 2018-08-02)
PROC: 5A1223Z Performance of Cardiac Pacing, Continuous (ICD-10-PCS; 2018-08-02)
PROC: 02703ZZ Dilation of Coronary Artery, One Artery, Percutaneous Approach (ICD-10-PCS; 2018-08-04)
PROC: 4A023N7 Measurement of Cardiac Sampling and Pressure, Left Heart, Percutaneous Approach (ICD-10-PCS; 2018-08-04)
PROC: B2111ZZ Fluoroscopy of Multiple Coronary Arteries using Low Osmolar Contrast (ICD-10-PCS; 2018-08-04)
PROC: B241ZZ3 Ultrasonography of Multiple Coronary Arteries, Intravascular (ICD-10-PCS; 2018-08-04)
PROC: 30233N1 Transfusion of Nonautologous Red Blood Cells into Peripheral Vein, Percutaneous Approach (ICD-10-PCS; 2018-08-05)
PROC: 0JH606Z Insertion of Pacemaker, Dual Chamber into Chest Subcutaneous Tissue and Fascia, Open Approach (ICD-10-PCS; 2018-08-07)
PROC: 02HK3JZ Insertion of Pacemaker Lead into Right Ventricle, Percutaneous Approach (ICD-10-PCS; 2018-08-07)
PROC: 02H63JZ Insertion of Pacemaker Lead into Right Atrium, Percutaneous Approach (ICD-10-PCS; 2018-08-07)
PROC: 4B02XSZ Measurement of Cardiac Pacemaker, External Approach (ICD-10-PCS; 2018-08-08)
DX: A41.9 Sepsis, unspecified organism (principal); I21.4 Non-ST elevation (NSTEMI) myocardial infarction; I50.33 Acute on chronic diastolic (congestive) heart failure; J96.01 Acute respiratory failure with hypoxia; G93.41 Metabolic encephalopathy; N17.0 Acute kidney failure with tubular necrosis; K72.00 Acute and subacute hepatic failure without coma; J69.0 Pneumonitis due to inhalation of food and vomit; T82.855A Stenosis of coronary artery stent, initial encounter; N17.9 Acute kidney failure, unspecified; D62 Acute posthemorrhagic anemia; I13.0 Hypertensive heart and chronic kidney disease with heart failure and stage 1 through stage 4 chronic kidney disease, or unspecified chronic kidney disease; I25.110 Atherosclerotic heart disease of native coronary artery with unstable angina pectoris; K92.2 Gastrointestinal hemorrhage, unspecified; J98.11 Atelectasis; J44.0 Chronic obstructive pulmonary disease with (acute) lower respiratory infection; D68.69 Other thrombophilia; E87.2 Acidosis; E11.65 Type 2 diabetes mellitus with hyperglycemia; E11.22 Type 2 diabetes mellitus with diabetic chronic kidney disease; E66.01 Morbid (severe) obesity due to excess calories; F41.9 Anxiety disorder, unspecified; E87.6 Hypokalemia; E78.5 Hyperlipidemia, unspecified; Z66 Do not resuscitate; Z51.5 Encounter for palliative care; K21.9 Gastro-esophageal reflux disease without esophagitis; K75.89 Other specified inflammatory liver diseases; N18.3 Chronic kidney disease, stage 3 (moderate); I27.20 Pulmonary hypertension, unspecified; I48.91 Unspecified atrial fibrillation; Y83.1 Surgical operation with implant of artificial internal device as the cause of abnormal reaction of the patient, or of later complication, without mention of misadventure at the time of the procedure; I77.1 Stricture of artery; I65.23 Occlusion and stenosis of bilateral carotid arteries; D63.8 Anemia in other chronic diseases classified elsewhere; E78.00 Pure hypercholesterolemia, unspecified; Z88.8 Allergy status to other drugs, medicaments and biological substances; I25.2 Old myocardial infarction; Z90.710 Acquired absence of both cervix and uterus; Z95.1 Presence of aortocoronary bypass graft; Z87.891 Personal history of nicotine dependence; Z80.0 Family history of malignant neoplasm of digestive organs; Z79.4 Long term (current) use of insulin; Z79.01 Long term (current) use of anticoagulants; Z95.818 Presence of other cardiac implants and grafts; Z98.49 Cataract extraction status, unspecified eye
CPT/HCPCS: 33208; 33210; 36415; 36569; 36600; 70450; 71045; 71250; 74018; 74230; 76700; 76937; 77001; 80048; 80053; 81001; 81003; 82140; 82272; 82803; 82962; 83036; 83605; 83690; 83735; 83880; 84100; 84439; 84443; 84484; 85014; 85018; 85025; 85520; 86677; 86850; 86900; 86923; 87040; 87081; 87086; 92920; 92978; 92979; 93005; 93458; 93880; 93970; 99156; 99157; 99285; C1753; C1769; C1779; C1785; C1892; C1894; C8929; G0378; J0295; J0461; J0583; J0690; J1265; J1644; J1940; J2250; J2270; J2704; J2997; J3010; J3486; Q9957; 92928; C1725; C1751; C1887; C9113; J0282; J1815; J2060; J2370; J3475; J7030; J7040; J7050; J7060; P9016; Q9967